=== PATIENT | female | born 1970 | race Caucasian/White ===

== ENCOUNTER → 2016-04-03 | Outpatient (CLI) | payer BC ==
[2013-07-12 15:14] VITALS: BP 108/64
[~2016-04-03] MED LIST: CHOL10002 PO; ESTR1PAT42 TD; EZET10TA3 PO; FENT1PAT21 TD; LUBI24CA5 PO; OXYC1TAB9 PO; SUMA4PEN2 SQ; TIZA4CAP3 PO; TOPI50TA38 PO; VALIUM10 MG PO
--- NOTE | 2016-04-04 10:14 | PN ---
DATE: 04/03/2016 DIAGNOSES: 1. Myofascial pain. 2. Cervical radiculopathy. 3. Lumbar radiculopathy. HISTORY OF PRESENT ILLNESS: The patient is a 46-year-old female who returns for followup status post medication management with both Duragesic patches and oxycodone. The patient is also taking Amitiza, which is working well for constipation. The patient reports no new motor or sensory deficits, still significant pain in the low back, bilateral shoulders. She is planning to have shoulder surgery with a total shoulder replacement on the right, coming up in the next month or two. The patient is meeting with her orthopedic surgeon next week. We will have more details then. The patient reports pain anywhere from 4 to 8 on a scale of 10. Medications were reducing the pain by about 75%, however, and she is pleased with this and has had no significant side effects besides the constipation, which is being well controlled by her report with Amitiza. The patient reports otherwise doing well. No new motor or sensory deficits. No new bowel or bladder incontinence. PHYSICAL EXAMINATION: VITAL SIGNS: The patient's blood pressure is 96/59, pulse 76, respirations 18, temperature 98.0 degrees Fahrenheit, height is 5 feet 1 inch, and weight 122 pounds. GENERAL: The patient is awake, alert, oriented, appropriate, very pleasant demeanor. HEENT: Head shows normocephalic and atraumatic. Extraocular movements are intact and symmetrical. Oral cavity, mucous membranes are moist and pink. Dentition is intact. NECK: Shows anterior throat supple without palpable lymphadenopathy noted. Swallow reflex is symmetrical. Neck shows full rotational motion of cervical spine with some minor tenderness with extension, but not with forward flexion. Posterior cervical musculature shows some moderate tenderness with palpation with the posterior, inferior, superior, and lateral trapezius muscle, the inferior cervical paraspinous musculature, but without trigger points, without radiation. CHEST: Shows normal on inspection. Breath sounds are clear to auscultation bilaterally. HEART: Shows S1 and S2 clear. ABDOMEN: Soft, nontender, and nondistended. No palpable organomegaly. No rebound or guarding demonstrated. BACK: The patient's back shows spine grossly midline. Lumbar paraspinous muscle shows some moderate tenderness with palpation, but only diffusely in the middle and lower distribution, but is firm, muscle girth is normal, but firm on palpation without radiation. No tenderness over the sacrum or the sacroiliac regions. The patient shows good rotation and motion of the lumbar spine, both laterally as well as extension and flexion with some minor pain with extension, but not with forward flexion. EXTREMITIES: Lower extremities showed deep tendon reflexes at 1+ in the patellar and tendo-calcaneus tendons. Motor exam is strong with dorsiflexion and extension, rated at approximately 4 on a scale of 5, but is symmetrical and equal with quadriceps and hamstring flexion of 4/5 and equal as well. Upper extremities show manager massage department strength at 4/5, biceps and triceps at 4/5 and equal, but symmetrical also. Peripheral pulses are 2+ in radial distribution as well as the posterior tibial and dorsalis pedis pulses. No peripheral edema is noted in any of the upper or lower extremities. PLAN: Options were discussed with the patient. We will refill patient's Duragesic patch as well as oxycodone, also Zanaflex and Amitiza, which medications discussed as well as side effects to be aware of discussed and the patient will follow up in approximately 90 days or sooner if necessary. The patient was instructed to call to notify when the surgery would be performed on her shoulder. Also, we may make plans for postoperative analgesia and pain control, postop with the surgery itself, has been done this with her in the past as she is under narcotic contract with our office. The patient continues to have normal ____ and normal urinalysis to date without ____. ANGEL EPPS MD DR: LENARD/kiet JOB#: [id number] / [id number]
== END | disposition home or self-care (01) ==
LOC: PNCL 13:05
PROVIDERS: ATTEND Anesthesiology
DX: M54.16 Radiculopathy, lumbar region (principal); M54.12 Radiculopathy, cervical region; M79.1 Myalgia
CPT/HCPCS: G0463

== ENCOUNTER → 2016-07-14 | Outpatient (CLI) | payer BC ==
[2013-07-12 15:14] VITALS: BP 108/64
[~2016-07-14] MED LIST changes: +EZET10TA18 PO; -EZET10TA3 PO; -LUBI24CA5 PO; +LUBI24CA7 PO
--- NOTE | 2016-07-15 03:49 | PAIN ---
DATE OF SERVICE: 07/14/2016 DIAGNOSES: 1. Myofascial pain. 2. Cervical radiculopathy. 3. Lumbar radiculopathy. 4. Bilateral shoulder joint pain. HISTORY OF PRESENT ILLNESS: The patient is a 46-year-old female who returns for followup status post medication management with both Duragesic patches and oxycodone, also taking Zanaflex for muscle relaxation and Amitiza for constipation. The patient reports she is doing very well with this regimen, has been having her pain very well controlled about 75% or so, overall without significant side effects. The patient is having shoulder surgery, planned for later this summer on her right shoulder ____ process of relocating her to [place]. They just sold their house here, has had some increase in stress, but she has her family helping and professional movers helping her back and they get things ready to go. She will be staying with her daughter here, she reports through the time for surgery at least and recovery from that. The patient reports otherwise doing fairly well. No new motor or sensory deficits, no new bowel or bladder incontinence, again constipation controlled well Amitiza. The patient rates her pain as a 4 on a scale of 10 currently, it can be as high as a 7 on a scale of 10 with standing and walking, using her upper extremities. The pain is mostly focused in the right shoulder and arm at this time as well as a the mid back, upper back and low back with some aching, sharp, dull and tight sensation, tingling can be severe, but is on and off in the back and more constant in the right shoulder, which is pending surgery once again. PHYSICAL EXAMINATION: VITAL SIGNS: Today, blood pressure 100/64, pulse 71, respirations 18, temperature 98.3 degrees Fahrenheit, height is 5 feet 1 inch, and weight 118 pounds. GENERAL: The patient is awake, alert, oriented, appropriate, very pleasant demeanor. HEENT: Shows normocephalic and atraumatic. Extraocular movements are intact and symmetrical. Oral cavity shows mucous membranes moist and pink. Dentition is intact. NECK: Shows anterior throat supple without palpable lymphadenopathy noted. Swallow reflex is symmetrical. Neck shows full rotational motion of cervical spine, both laterally as well as extension and flexion without significant pain reported. CHEST: Shows normal on inspection. Breath sounds are clear to auscultation bilaterally. HEART: Shows S1 and S2 clear. No murmurs are auscultated. ABDOMEN: Soft, nontender, and nondistended. No palpable organomegaly is noted. No rebound or guarding demonstrated. BACK: Shows spine grossly midline. Normal appearing thoracic kyphosis and lumbar lordotic curvature. There is some moderate tenderness to palpation in the superior medial and lateral trapezius on the right compared to the left, but more in the lateral aspect. The patient does have some difficulty with abduction of the right shoulder secondary to pain, as well as forward reach but better with posterior rotation. Left side shows good rotational motion. There is only very mild pain with lateral abduction greater than 90 degrees. Back shows spine grossly midline. Lumbar paraspinous muscle shows some moderate tenderness, but again diffusely in the lower lumbar distribution bilaterally, appears roughly symmetrical on inspection, with palpation shows some moderate tenderness without trigger points or radiation. No tenderness over the sacrum or sacroiliac regions. The patient shows good rotation and motion of the lumbar spine, both laterally as well as extension and flexion without pain reported. EXTREMITIES: Upper extremity deep tendon reflexes at 2+ in the biceps and 1+ just in the patellar and tendo calcaneus tendons. Motor exam is strong with mechanical engineering draftsperson strength at about 4/5 on the right hand and 5/5 on the left with dorsiflexion, extension, quadriceps and hamstring flexion are intact and symmetrical bilaterally, rated at 5/5 and equal. Options were discussed with the patient at this time. The patient's old chart was reviewed as her current medication regimen and updated. Current review of systems updated today as well. We will refill patient's Duragesic patches as well as oxycodone, Zanaflex and Amitiza with instructions, side effects to be aware of discussed with each of the medications. The patient will continue rehabilitative therapy with her shoulders, especially on the right side. Presurgical stretching as well. She is seeing an orthopedic surgeon later this week. We will follow up with his recommendations also. The patient will maintain hydration. We talked about dietary considerations regarding this as well. The patient had a good handle on this with fruit juices and ____ help as well as Amitiza. The patient will follow up in approximately 2 months as scheduled or sooner if necessary. ANGEL EPPS MD DR: Yamilet JOB#: [id number] / [id number]
== END | disposition home or self-care (01) ==
LOC: PNCL 14:37
PROVIDERS: ATTEND Anesthesiology
DX: M54.12 Radiculopathy, cervical region (principal); M54.16 Radiculopathy, lumbar region; M25.512 Pain in left shoulder; M25.511 Pain in right shoulder; M79.1 Myalgia
CPT/HCPCS: 99212

== ENCOUNTER → 2016-09-24 | Outpatient (CLI) | payer BC ==
[2013-07-12 15:14] VITALS: BP 108/64
--- NOTE | 2016-09-24 19:13 | PAIN ---
DATE OF SERVICE: 09/24/2016 DIAGNOSES: 1. Myofascial pain. 2. Cervical radiculopathy. 3. Lumbar radiculopathy. 4. Bilateral shoulder joint pain. HISTORY OF PRESENT ILLNESS: The patient is a 46-year-old female who returns for followup status post medication management with both oxycodone and Duragesic patches. The patient reports she had been doing very well with this on very stable regimen with the medication with no significant side effects. At times she is doing well with the Amitiza for constipation, which she was taking it upon every other day on average, but sometimes each day. The patient reports no new motor or sensory deficits, still pain in the low back, neck, shoulders, upper back, mid back, back and right hip, aching, dull tight cramping, burning, tingling with radiating pain that becomes more severe and constant, radiating from 4-9 on a scale of 10, currently 4 today. The patient reports it awakens her from sleep 2-3 times at night. She has to reposition, take pain medication, get out of the bed, then she is able to get back to sleep most of the nights after this. The patient reports no new motor or sensory deficits, no new bowel or bladder incontinence or other complaints. PHYSICAL EXAMINATION: VITAL SIGNS: Shows blood pressure 122/77, pulse 98, respirations 18, temperature is 98.3 degrees Fahrenheit, height is 5 feet 1 inch, weight is 123 pounds. GENERAL: The patient is awake, alert, oriented, appropriate, very pleasant demeanor. HEENT: Head shows normocephalic, atraumatic. Extraocular movements are intact and symmetrical. Oral cavity shows mucous membranes moist and pink. Dentition is intact. NECK: Shows anterior throat supple without palpable lymphadenopathy noted. Swallow reflex is symmetrical. Neck shows full rotational motion of cervical spine with some minor tenderness with extension, but not with forward flexion, right and left lateral rotation. CHEST: Shows normal on inspection. Breath sounds are clear to auscultation bilaterally. HEART: Shows S1 and S2 clear. No murmurs auscultated. ABDOMEN: Soft, nontender, nondistended. No palpable organomegaly, no rebound or guarding demonstrated. BACK: Shows spine grossly in midline. Normal appearing thoracic kyphosis and lumbar lordotic curvature as well as cervical lordotic curvature. Lumbar paraspinous muscle shows symmetrical. There is mildly tender diffusely normal lumbar distribution bilaterally, but only diffusely without radiation. Mid thoracic spine shows some moderate tenderness in the rhomboid musculature bilaterally, was very firm, very tight musculature without specific trigger points and no radiation. EXTREMITIES: Lower extremities showed deep tendon reflexes 1+ in the patellar and tendo calcaneus tendons. Motor exam is strong with 5/5 dorsiflexion, extension, quadriceps and hamstring flexion and are symmetrical. Upper extremities show significant tenderness with attempted abduction of the right shoulder as well as rotational motion posteriorly, but better anteriorly. This is true with passive and active motion, very firm and tender. Peripheral pulses are 2+ in radial distribution and 1+ posterior tibial distribution. No peripheral edema noted of the extremities. Options were discussed with the patient and the patient's old chart was reviewed. Current medication regimen updated. Current review of systems updated today as well and we will refill the patient's Duragesic patches as well as oxycodone also. The patient is scheduled to have surgery on her right rotator cuff next month on 10/30/2016 and we will have extra oxycodone available for breakthrough pain for postoperative condition after surgery. The patient was given instruction as well as side effects to be aware with medication. Also, refill the patient's Amitiza as she is doing quite well with this as well as Zanaflex for muscle relaxation. The patient was given instruction as well as side effects to be aware of each of her medications. The patient has had appropriate K-TRACS reporting today as well as appropriate urinalysis to date as well and again is on a very stable regimen of her current medications. We will maintain also for another 60-day supply of her controlled substances and follow up after her surgery next month. ANGEL EPPS MD DR: LENARD/kiet JOB#: [id number] / [id number]
== END | disposition home or self-care (01) ==
LOC: PNCL 13:32
PROVIDERS: ATTEND Anesthesiology
DX: M54.12 Radiculopathy, cervical region (principal); M54.16 Radiculopathy, lumbar region; M25.512 Pain in left shoulder; M25.511 Pain in right shoulder; M79.1 Myalgia
CPT/HCPCS: 99212

== ENCOUNTER → 2016-11-19 | Outpatient (CLI) | payer BC ==
[2013-07-12 15:14] VITALS: BP 108/64
--- NOTE | 2016-11-19 14:50 | PAIN ---
DATE OF SERVICE: 11/19/2016 DIAGNOSES: 1. Myofascial pain. 2. Cervical radiculopathy. 3. Lumbar radiculopathy. 4. Shoulder joint pain with primary osteoarthritis, bilateral shoulder joints. HISTORY OF PRESENT ILLNESS: The patient is a 46-year-old female who returns for followup status post medication management, last seen 09/24/2016. The patient returns reporting she is rather distraught as her had on 10/09/2016 unexpectedly from they believed myocardial infarction. The patient has been quite emotionally stressed and distraught, which has elevated her pain level to some extent. The patient reports she is coping fairly well. Now, she is seeing a psychologist fairly regularly since this happened and feels that she is coping fairly well getting through this. The patient is again understandably upset and emotional today regarding the loss of her spouse. The patient reports her pain has been increased in the base of her neck, especially the right shoulder compared to the left. She has postponed the surgery she had scheduled for last month secondary to the event that her passing. Is having significant pain in her right shoulder secondary. The patient reports the pain is an 8 on a scale of 10 at its worst, a 6-7 on average and a 4 at its least, is a 4 today. She reports it is aching, sharp, tight, dull, tingling, stabbing, burning with severe, constant and unbearable pain in the shoulders as well as the neck, upper back, mid back and low back and the right hip and left leg. The patient reports it awakens her from sleep at least every 3-4 hours, has to reposition and take pain medication. She is usually able to get back to sleep, but again sleeping has been very difficult for her since her 's at the end of September. PHYSICAL EXAMINATION: VITAL SIGNS: The patient's blood pressure is 117/71, pulse 68, respirations 18, temperature is 97.9 degrees Fahrenheit. Height is 5 feet 1 inch, weighs 119 pounds. GENERAL: The patient is awake, alert, oriented, appropriate, very pleasant demeanor. HEENT: Head shows normocephalic, atraumatic. Extraocular movements are intact, symmetrical. Oral cavity, mucous membranes are moist and pink. Dentition is intact. NECK: Shows anterior throat supple without palpable lymphadenopathy noted. Swallow reflex is symmetrical. CHEST: Shows normal on inspection. Breath sounds clear to auscultation bilaterally. HEART: Shows S1 and S2 clear. No murmurs auscultated. ABDOMEN: Soft, nontender, nondistended. No palpable organomegaly is noted. No rebound or guarding demonstrated. BACK: Shows spine grossly in the midline. Normal appearing cervical lordotic curvature, thoracic kyphotic curvature, mild flattening of lumbar lordotic curvature. Paraspinous musculature is tender throughout the middle and lower cervical paraspinous musculature bilaterally without radiation, also in the superior medial and lateral trapezius but without radiation as well. The patient shows good rotational motion of cervical spine, both laterally as well as extension and flexion without significant pain reported with some mild pain with extension only in the base of the neck. Low back shows good rotational motion, both laterally as well as extension and flexion with only minor pain reported with extension, but not flexion. Upper extremities showed deep tendon reflexes 2+ in the biceps and triceps tendons. Motor exam is strong with curriculum manager strength rated at 5/5. Shoulders are quite tender with movement, even a small amount of abduction about 20-30 degrees on the right side causes pain in the shoulder itself. EXTREMITIES: Lower extremities showed deep tendon reflexes 1+ in the patellar and tendo calcaneus tendons are equal. Motor exam is strong with 5/5 dorsiflexion and extension. Options were discussed with the patient. The patient's old chart was reviewed as her current medication regimen and updated. Current review of systems is updated today as well. We will refill the patient's Duragesic patches as well as oxycodone, Zanaflex and Amitiza as this is doing quite well for her. The patient was given instructions as well as side effects to be aware of each of the medications. Given 2-month prescription for each and will follow up in approximately 2 months period of time or sooner as necessary. ANGEL EPPS MD DR: LENARD/kiet JOB#: [id number] / [id number]
== END | disposition home or self-care (01) ==
LOC: PNCL 12:55
PROVIDERS: ATTEND Anesthesiology
DX: M54.12 Radiculopathy, cervical region (principal); M54.16 Radiculopathy, lumbar region; M19.011 Primary osteoarthritis, right shoulder; M19.012 Primary osteoarthritis, left shoulder; I21.9 Acute myocardial infarction, unspecified
CPT/HCPCS: 99212

== ENCOUNTER → 2017-01-14 | Outpatient (CLI) | payer BC ==
[2013-07-12 15:14] VITALS: BP 108/64
--- NOTE | 2017-01-15 01:20 | PAIN ---
DATE OF SERVICE: 01/14/2017 DIAGNOSES: 1. Myofascial pain. 2. Cervical radiculopathy. 3. Lumbar radiculopathy. 4. Bilateral shoulder joint pain with primary osteoarthrosis, bilateral shoulder joints. HISTORY OF PRESENT ILLNESS: The patient is a 46-year-old female who returns for a followup status post medication management with both Duragesic patches and oxycodone 10 mg. The patient is also taking Zanaflex for muscle relaxation and Amitiza for constipation. The patient reports she has been doing very well with her regimen without significant increases in pain, fairly steady regimen, still with some pain in the base of the neck, upper back, mid back, low back, bilateral shoulders, right greater than left. The patient is scheduled to have surgeries on her shoulder in February of next year. The patient reports she is still having significant pain, worse with sleeping, lifting items with the right arm or shoulder as well as standing, walking; much better with lying down or sitting, but worse with standing, bending with the back. The patient reports the pain in her shoulder and upper back is an 8 on a scale of 10 at its worst, a 5-6 on average and a 4 at its least, is a 5 today; low back is a 6 today. The patient reports it is aching, sharp, dull, tight, tingling, burning, constant and becoming more severe in the right shoulder itself. The low back, mid back and neck is about the same, but has been with a dull and aching quality with activity only. The patient reports it awakens her from sleep about every 3 nights, but generally because of her right shoulder, not because of her neck or back. The patient can usually reposition, take pain medication, get out of bed and is able to get back to sleep most times. The patient reports no new motor or sensory deficits, no new bowel or bladder incontinence, no other complaints or concerns. PHYSICAL EXAMINATION: VITAL SIGNS: Today, the patient's blood pressure is 104/61, pulse 66, respirations 18, temperature is 98.0 degrees Fahrenheit, height is 5 feet 1 inch, weight is 122 pounds. GENERAL: The patient is awake, alert, oriented, appropriate, very pleasant demeanor. HEENT: Shows normocephalic, atraumatic. Extraocular muscles are intact and symmetrical. Oral cavity shows mucous membranes moist and pink. Dentition is intact. NECK: Shows anterior throat is supple without palpable lymphadenopathy noted. Swallow reflex is symmetrical. CHEST: Shows normal with inspection. Breath sounds are clear to auscultation bilaterally. HEART: Shows S1, S2 clear. No murmurs auscultated. ABDOMEN: Soft, nontender, nondistended. No palpable organomegaly is noted. No rebound or guarding demonstrated. MUSCULOSKELETAL: Back shows spine grossly in the midline, normal-appearing cervical lordotic curvature, thoracic kyphotic curvature, lumbar lordotic curvature. No previous bruises, lesions, rashes or scars are noted. Cervical paraspinous muscle shows some moderate tenderness with palpation, but is symmetrical, but only in the inferior aspect, more on the right than the left into the superior medial trapezius as well, but without radiation, without trigger points. The patient has good rotational motion of the cervical spine, slightly guarded with far right lateral rotation, but full extension, full flexion and far left lateral rotation past 45 degrees performed without difficulty. The patient's low back shows symmetrical with inspection, some moderate tenderness with palpation throughout the upper, middle and lower distribution of the paraspinous muscles, but again symmetrical without radiation. No tenderness over the sacrum and sacroiliac regions. Lower extremities show deep tendon reflexes at 1+ in the patellar and tendo-calcaneus tendons and are equal. Upper extremities show 2+ biceps and triceps tendons. Ship Erector strength is 5/5 as is dorsiflexion, extension, quads and hamstrings without significant deficit. Peripheral pulses are 2+ in the radial distribution bilaterally and 1+ posterior tibia without edema in any of the extremities. PLAN: Options were discussed with the patient. The patient's old chart was reviewed as her current medication regimen and updated. Current review of systems updated today as well. We will refill the patient's Duragesic patch as well as oxycodone, Zanaflex and Amitiza. The patient was also given samples of Symproic to try for the constipation and see if this may work better to substitute this for the Amitiza. If significantly better, we will have a prescription called in for her. The patient was given instruction as well as side effects to be aware with each of her medications. Encouraged to increase stretching and strengthening exercises as tolerated and activity level as tolerated. The patient will follow up in approximately 2 months or sooner as necessary. ANGEL EPPS MD DR: LENARD/kiet JOB#: [id number] / [id number]
== END | disposition home or self-care (01) ==
LOC: PNCL 13:10
PROVIDERS: ATTEND Anesthesiology
DX: M54.12 Radiculopathy, cervical region (principal); M54.16 Radiculopathy, lumbar region; M19.012 Primary osteoarthritis, left shoulder; K59.00 Constipation, unspecified
CPT/HCPCS: 99212

== ENCOUNTER → 2017-04-07 | Outpatient (CLI) | payer BC | END | disposition home or self-care (01) | LOC: PNCL 09:04 | DX: M54.16 Radiculopathy, lumbar region (principal); M81.0 Age-related osteoporosis without current pathological fracture; K59.00 Constipation, unspecified; M25.511 Pain in right shoulder | CPT/HCPCS: 99212 ==

== ENCOUNTER → 2017-06-10 | Outpatient (CLI) | payer BC | END | disposition home or self-care (01) | LOC: PNCL 08:38 | DX: M54.16 Radiculopathy, lumbar region (principal); M54.12 Radiculopathy, cervical region; M19.011 Primary osteoarthritis, right shoulder; K59.00 Constipation, unspecified | CPT/HCPCS: 99212 ==

== ENCOUNTER → 2017-09-03 | Outpatient (CLI) | payer BC | END | disposition home or self-care (01) | LOC: PNCL 09:53 | DX: M54.16 Radiculopathy, lumbar region (principal); M54.12 Radiculopathy, cervical region; M19.012 Primary osteoarthritis, left shoulder; M19.011 Primary osteoarthritis, right shoulder | CPT/HCPCS: 99212 ==

== ENCOUNTER → 2017-11-26 | Outpatient (CLI) | payer BC ==
[2013-07-12 15:14] VITALS: BP 108/64
[~2017-11-26] MED LIST changes: +OXYC-411 PO; -OXYC1TAB9 PO
--- NOTE | 2017-11-27 02:19 | PAIN ---
DATE OF SERVICE: 11/26/2017 PROGRESS NOTE FOR PAIN CLINIC DIAGNOSES: 1. Myofascial pain. 2. Cervical radiculopathy. 3. Lumbar radiculopathy. 4. Shoulder joint pain with bilateral shoulder joint pain with osteoarthritis. HISTORY OF PRESENT ILLNESS: The patient is a 47-year-old female who returns for followup status post medication management with Duragesic patches and oxycodone and also the patient is taking Amitiza and Zanaflex. The patient reports she is doing very well with this, on a very stable regimen. Still has some significant pain in the base of the neck and shoulders causing headaches more on the right shoulder than the left, status post rotator cuff repair. The patient reports her pain is 8 on a scale of 10 at its worse, 5 on average, 4 at its least and is a 5 today. The patient reports tingling, burning, cramping, aching, sharp, dull, tight, radiating, becoming constant, sometimes severe and unbearable with activity and use of the right upper extremity and also pain in the mid back and low back radiating to the right posterior gluteus, posterior thigh and calf in a radicular fashion. The patient reports the pain medication, however, decreased the pain by about 75%-80% improvement and has for several months and she is doing very well. She is still having some difficulty with sleeping at night but sleeps about 6 hours at a time. The pain does awaken her mostly in the right shoulder. The patient reports she is scheduled to have an umbilical hernia repair in the near future as well as work on the shoulder, but this is being scheduled. The patient reports no side effects with the medication and has been managing fairly well with this for some time now maintaining hydration. No significant side effects. PHYSICAL EXAMINATION: VITAL SIGNS: The patient's blood pressure is 110/75, pulse 77, respirations are 18 and temperature 98.1 degrees Fahrenheit. Height is 5 feet 1 inch and weight is 123 pounds. GENERAL: The patient is awake, alert, oriented, appropriate and very pleasant demeanor. HEENT: Head is normocephalic and atraumatic. Extraocular movements are intact and symmetrical. Oral cavity: Mucous membranes are moist and pink. Dentition is intact. NECK: Shows anterior throat supple without palpable lymphadenopathy noted. Swallow reflex symmetrical. CHEST: Shows normal on inspection. Breath sounds are clear to auscultation bilaterally. HEART: Shows S1 and S2 clear. No murmurs auscultated. ABDOMEN: Soft, nontender and nondistended. No palpable organomegaly is noted. The patient does have a slight outpouching just in the hypogastric region beneath the umbilicus, which is moderately tender with palpation but no gross herniation palpated on exam today. No organomegaly is noted. No rebound or guarding. BACK: Shows spine grossly in the midline. Cervical paraspinous muscle shows symmetrical on inspection, on palpation shows some moderate tenderness, which is diffusely tender throughout the upper, middle and lower distribution of the paraspinous muscles, more on the right than the left into the superior medial trapezius, but without specific trigger points or radiation. The patient has good rotational motion of the cervical spine, both laterally as well as extension and flexion without significant difficulty. Lower back shows some moderate tenderness throughout the lumbar paraspinous musculature, upper, middle and lower distribution as well but only diffusely without radiation. EXTREMITIES: The patient's upper extremities show significant limitation of motion of the right shoulder but abduction at about 45 degrees, which is better than on previous exams without significant pain. Moderate tenderness with palpation to the anterior, posterior and lateral aspect of the deltoid as well as acromioclavicular region on the right side. The patient's lower extremities show deep tendon reflexes at 1+ in the patellar and tendo-calcaneus tendons. Motor exam is approximately 4 on a scale of 5 but equal and symmetrical with dorsiflexion, extension, quadriceps and hamstring flexion. Peripheral pulses are 2+ radial, 1+ posterior tibial. No peripheral edema is noted in any of the extremities. Options were discussed with the patient. The patient's old chart was reviewed as well as her current medication regimen updated. Current review of systems updated today as well. We will refill the patient's Duragesic patch as well as oxycodone, Zanaflex and Amitiza. The patient has had appropriate K-TRACS reporting as well as appropriate urinalysis to date. We will fill this for a 90-day supply. The patient was given instruction as well as side effects to be aware of each of the medications and we will follow up as scheduled or sooner if necessary. ANGEL EPPS MD DR: Yamilet JOB#: [id number] / [id number]
== END | disposition home or self-care (01) ==
LOC: PNCL 11:59
PROVIDERS: ATTEND Anesthesiology
DX: M79.18 Myalgia, other site (principal); M54.12 Radiculopathy, cervical region; M54.16 Radiculopathy, lumbar region; M19.012 Primary osteoarthritis, left shoulder; M19.011 Primary osteoarthritis, right shoulder
CPT/HCPCS: 99212

== ENCOUNTER → 2018-02-18 | Outpatient (CLI) | payer BC ==
[2013-07-12 15:14] VITALS: BP 108/64
[~2018-02-18] MED LIST changes: +FREM225S SQ; +KETO1SPR NS
--- NOTE | 2018-02-18 15:45 | PAIN ---
DATE OF SERVICE: 02/18/2018 DIAGNOSES: 1. Myofascial pain. 2. Cervical radiculopathy. 3. Lumbar radiculopathy. 4. Bilateral shoulder joint pain with primary osteoarthritis. HISTORY OF PRESENT ILLNESS: The patient is a 48-year-old female who returns for followup status post medication management with oxycodone and Duragesic patches. The patient is also taking Zanaflex and Amitiza for constipation, which she reports works very well. The patient reports she is on a very stable regimen, reports about 75%-80% improvement in her pain in the base of the neck, shoulders, upper back and mid back and low back with radiation to the right lower extremity. The patient reports medication is doing well. She is able to function without grogginess, drowsiness or other side effects, some mild constipation, which is controlled with Amitiza. The patient reports chief complaint of pain in her right shoulder. She is still awaiting a surgical reevaluation for this. The patient reports the pain is aching, dull, tight, sharp, shooting, also in the neck and back with tingling, burning, cramping, stabbing pain in the low back especially extremities. It is mostly constant in the back, severe and unbearable at times, worse with activity, better with sitting or lying down, but awakening her from sleep about every 4 hours. The patient reports the pain is 8-9 on a scale of 10 at its worst, 4-5 on average and a 4 at its least and is a 5 today. The patient reports no new motor or sensory deficit, again no side effects with the medications. PHYSICAL EXAMINATION: VITAL SIGNS: The patient's blood pressure 114/49, pulse 74, respirations are 18, temperature is 98.0 degrees Fahrenheit, weight is 126 pounds. GENERAL: The patient is awake, alert, oriented, appropriate, very pleasant demeanor. HEENT: Head is normocephalic, atraumatic. Extraocular movements intact and symmetrical. Oral cavity: Mucous membranes are moist and pink. Dentition is intact. NECK: Shows anterior throat supple without palpable lymphadenopathy noted. Swallow reflex is symmetrical. CHEST: Shows normal on inspection. Breath sounds clear to auscultation bilaterally. HEART: Shows S1, S2 clear. No murmurs auscultated. ABDOMEN: Soft, nontender, nondistended. No palpable organomegaly is noted. No rebound or guarding demonstrated. BACK: Shows spine grossly in the midline. Cervical lordotic curvature is maintained as is thoracic kyphotic curvature, some mild flattening of lumbar lordotic curvature. Palpation shows some moderate tenderness throughout the cervical paraspinous musculature, mostly in the inferior aspect, right slightly greater than left in the superior medial trapezius. The patient has good rotational motion of the cervical spine, both laterally as well as extension and flexion without significant difficulty. Lower back shows some moderate tenderness throughout the upper, middle, lower distribution of paraspinous muscles in the lumbar distribution without specific trigger points or radiation and only with moderate tenderness bilaterally, but without radiation. EXTREMITIES: The patient's extremities show upper extremity deep tendon reflexes 2+, lower extremities are 1+ patellar and tendo calcaneus tendons. Motor exam is strong with irish moss bleacher strength rated 5/5 as is bicep and tricep flexion. Lower extremities show 5/5 dorsiflexion, extension, quadriceps and hamstring flexion. The patient's right shoulder shows significant tenderness with attempted abduction, which she is only to abduct approximately 45 degrees from her side without significant pain in the superior aspect of the shoulder, although no masses are palpated. She is moderately tender throughout the anterior, posterior and lateral aspect of the deltoid as well as the acromioclavicular joint on the right side greater than left. Options were discussed with the patient. The patient's old chart was reviewed as her current medication regimen and updated. Current review of systems is updated today as well. We will refill the patient's medications, Duragesic patch as well as Amitiza, oxycodone and Zanaflex with instructions. Side effects to be aware of discussed with each of the medications for 90-day supply. The patient has had appropriate K-TRACS reporting as well as appropriate urinalysis to date. We have renewed urinalysis today as well, renewed the narcotic contract. The patient was given a copy of this as well. The patient will follow up in approximately 3 months or sooner if necessary. ANGEL EPPS MD DR: LENARD/kiet JOB#: [id number] / [id number]
== END | disposition home or self-care (01) ==
LOC: PNCL 11:42
PROVIDERS: ATTEND Anesthesiology
DX: M54.12 Radiculopathy, cervical region (principal); M54.16 Radiculopathy, lumbar region; M19.012 Primary osteoarthritis, left shoulder; M19.011 Primary osteoarthritis, right shoulder; Z79.899 Other long term (current) drug therapy
CPT/HCPCS: G0463

== ENCOUNTER → 2018-05-13 | Outpatient (CLI) | payer BC ==
[2013-07-12 15:14] VITALS: BP 108/64
[~2018-05-13] MED LIST changes: -FREM225S SQ
--- NOTE | 2018-05-13 20:20 | PAIN ---
DATE OF SERVICE: 05/13/2018 DIAGNOSES: 1. Myofascial pain. 2. Cervical radiculopathy. 3. Lumbar radiculopathy. 4. Shoulder joint pain with osteoarthritis bilaterally. HISTORY OF PRESENT ILLNESS: The patient is a 48-year-old female who returns for followup status post medication management with both Duragesic patches and oxycodone. The patient has been on this regimen for extended period of time, is very stable with the medication. Does very well with this. Has had no significant side effects. The patient reports no new motor or sensory deficits, still significant pain in bilateral shoulders, right greater than left at this time; also mid back, upper back and low back with pain in the right hip. The patient reports it is aching, sharp, dull, tight, tingling, burning, cramping, sometimes constant, sometimes severe, occasionally unbearable, usually with increased activity especially with right upper extremity and shoulder. The patient reports pain is 8 on a scale of 10 at its worst, 4-5 at its average and a 4 at its least and is a 5 today. The patient reports no new motor or sensory deficits, no new changes. Again, no side effects with medication. Reports about a 70% improvement overall without significant side effects. The patient reports it still awakens her from sleep at times, she can reposition, take pain medication and get back to sleep. PHYSICAL EXAMINATION: VITAL SIGNS: Today, the patient's blood pressure 134/64, pulse 75, respirations 18, temperature 97.8 degrees Fahrenheit. Height is 5 feet 1 inch, weighs 125 pounds. GENERAL: The patient is awake, alert, oriented, appropriate, very pleasant demeanor. HEENT: Head shows normocephalic, atraumatic. Extraocular movements are intact and symmetrical. Oral cavity, mucous membranes are moist and pink. Dentition is intact. NECK: Shows anterior throat supple without palpable lymphadenopathy noted. Swallow reflex is symmetrical. CHEST: Shows normal on inspection. Breath sounds clear to auscultation bilaterally. HEART: Shows S1, S2 clear. No murmurs auscultated. ABDOMEN: Soft, nontender, nondistended. No palpable organomegaly is noted. No rebound or guarding demonstrated. BACK: Shows spine grossly in the midline, normal-appearing cervical lordotic curvature, thoracic kyphotic curvature, mild flattening of lumbar lordotic curvature. Cervical paraspinous musculature shows symmetrical on inspection, with palpation some mild tenderness to moderate tenderness in the right side in the inferior aspect of the cervical paraspinous musculature in the superior, medial and lateral trapezius on the right, but not the left. The patient has good rotational motion of cervical spine, both laterally as well as extension and flexion without significant pain reported. EXTREMITIES: The patient's upper extremities show deep tendon reflexes at 2+ in the biceps and triceps tendons. Motor exam is strong with 5/5 environment friendly landscape designer strength, bicep and tricep flexion. The patient's shoulders have some limited abduction secondary to pain bilaterally, but somewhat worse on the right than the left and pain with shoulder shrug and resistance, but without loss of strength on resistance. Lower extremities show deep tendon reflexes 1+/4 in the patellar and tendo-calcaneus tendons. Motor exam is strong with 5/5 dorsiflexion, extension, quadriceps and hamstring flexion is symmetrical. Peripheral pulses are 2+ radial, 1+ posterior tibia. No peripheral edema is noted in bilateral upper and lower extremities. Options were discussed with the patient. The patient's old chart was reviewed as her current medication regimen and updated. Current review of systems is updated today as well. We will refill the patient's medication for a 3-month period and she has had appropriate K-TRACS reporting as well as appropriate urinalysis to date. Again, Duragesic patches 100 mcg and oxycodone 10 mg. The patient is also taking Amitiza for constipation and Zanaflex for muscle relaxation. Again, doing very well with each of these, has been on very stable regimen. The patient was given instruction as well as side effects to be aware of with all of the medications and will follow up in approximately 90 days or sooner as necessary. ANGEL EPPS MD DR: LENARD/kiet JOB#: [id number] / [id number]
== END | disposition home or self-care (01) ==
LOC: PNCL 11:45
PROVIDERS: ATTEND Anesthesiology
DX: M19.011 Primary osteoarthritis, right shoulder (principal); M19.012 Primary osteoarthritis, left shoulder; M54.12 Radiculopathy, cervical region; M54.16 Radiculopathy, lumbar region; M79.18 Myalgia, other site; M25.551 Pain in right hip
CPT/HCPCS: G0463

== ENCOUNTER → 2018-08-18 | Outpatient (CLI) | payer BC ==
[2013-07-12 15:14] VITALS: BP 108/64
[~2018-08-18] MED LIST changes: +FREM225S SQ
--- NOTE | 2018-08-19 00:07 | PAIN ---
DATE OF SERVICE: 08/18/2018 PROGRESS NOTE FOR PAIN CLINIC DIAGNOSES: 1. Myofascial pain. 2. Cervical radiculopathy. 3. Lumbar radiculopathy. 4. Shoulder joint pain, right greater than left, with primary osteoarthritis. HISTORY OF PRESENT ILLNESS: The patient is a 48-year-old female who returns for followup status post medication management with both oxycodone and Duragesic patches. The patient is also taking Zanaflex and Amitiza and this is doing very well for any constipation. She does not use it every day, but when she does need it, it does work very well by her report. The patient reports no new motor or sensory deficits, no new bowel or bladder incontinence. The medication has decreased the pain by about 70% improvement, without significant side effects. The patient still complains of pain in the base of the neck, right shoulder especially, with some electrical zinging pains recently and in the low back and right leg. The patient reports the pain in the back, neck and shoulders is aching, sharp, tight, dull, tingling, burning and alternating stabbing, sometimes constant and sometimes severe with weightbearing, repetitive motions, lifting items with her right arm. The patient reports this is a 9 on a scale of 10 at its worst in the past week, 6 on average, 4-5 at its least and is a 5 today. The patient reports she is doing better with some migraines, though she is taking the once a month Depo shot for this, which seems to be helping. The patient reports the pain awakens her from sleep at night. She has had a lot of stress lately. She has taken custody of her granddaughter, which is now 3 years old and this does cause a lot of stress and anxiety in her life as well, which has exacerbated the pain. PHYSICAL EXAMINATION: VITAL SIGNS: The patient's blood pressure is 112/64, pulse 83, respirations are 18 and temperature 98.4 degrees Fahrenheit. Height is 5 feet 1 inches and weight is 120 pounds. GENERAL: The patient is awake, alert, oriented, appropriate, very pleasant demeanor. HEENT EXAMINATION: Shows normocephalic, atraumatic. Extraocular movements are intact and symmetrical. Oral cavity, mucous membranes are moist and pink. Dentition is intact. NECK: Shows anterior throat supple, without palpable lymphadenopathy noted. Swallow reflex is symmetrical. CHEST: Shows normal with inspection. Breath sounds are clear bilaterally. HEART: Shows S1, S2 clear. No murmurs auscultated. ABDOMEN: Soft, nontender and nondistended. No palpable organomegaly is noted. No rebound or guarding demonstrated. BACK: Shows spine grossly in the midline, with normal-appearing thoracic kyphosis, lumbar lordotic curvature and cervical lordotic curvature. Paraspinous muscle shows symmetrical on inspection. On palpation, it shows some moderate tenderness diffusely in the inferior aspects of the cervical paraspinous muscles bilaterally, but only diffusely, without radiation; somewhat more tender on the right trapezius musculature, extending laterally towards the shoulder. EXTREMITIES: The patient's upper extremities show deep tendon reflexes 2+ in the biceps and triceps tendons. Motor exam is strong with approximately 4 on a scale of 5 on the right, with second helper strength, bicep and tricep flexion and 5/5 on the left. The patient's right shoulder shows significant tenderness with abduction even past about 20 degrees. Also with range of motion, both actively and passively, it is moderately tender to severely tender in the superior aspect of the shoulder, anterior deltoid and lateral deltoid. Peripheral pulses are 2+ radial distribution. No peripheral edema is noted. PLAN: Options were discussed with the patient. The patient's old chart was reviewed as was her current medication list updated and review of systems updated today as well. We will refill the patient's medication of Duragesic patches 100 mcg as well as oxycodone 10 mg, Amitiza as well as Zanaflex for a 90-day period. The patient has had appropriate K-TRACS reporting as well as appropriate urinalysis to date and will follow up with the clinic in approximately 90 days or sooner as necessary. The patient was given instructions as well as side effects to be aware of each of the medications and we will follow up as scheduled. ANGEL EPPS MD DR: LENARD/kiet JOB#: [id number] / [id number]
== END | disposition home or self-care (01) ==
LOC: PNCL 13:11
PROVIDERS: ATTEND Anesthesiology
DX: M19.012 Primary osteoarthritis, left shoulder (principal); M19.011 Primary osteoarthritis, right shoulder; M54.12 Radiculopathy, cervical region; M54.16 Radiculopathy, lumbar region; M79.18 Myalgia, other site; Z79.891 Long term (current) use of opiate analgesic; G43.909 Migraine, unspecified, not intractable, without status migrainosus
CPT/HCPCS: G0463

== ENCOUNTER → 2018-11-02 | Outpatient (CLI) | payer BC ==
[2013-07-12 15:14] VITALS: BP 108/64
[~2018-11-02] MED LIST changes: -EZET10TA18 PO; +EZET10TA20 PO
--- NOTE | 2018-11-02 22:24 | PAIN ---
DATE OF SERVICE: 11/02/2018 PROGRESS NOTE FOR PAIN CLINIC DIAGNOSES: 1. Myofascial pain. 2. Cervical radiculopathy. 3. Lumbar radiculopathy. 4. Shoulder joint pain with primary osteoarthritis, right greater than left. HISTORY OF PRESENT ILLNESS: The patient is a 48-year-old female, who returns for followup status post medication management with both Duragesic patches and oxycodone, also the patient is taking Amitiza for constipation and Zanaflex for muscle relaxation. The patient reports she is doing very well, has been on a very stable regimen. She has been on these medications for an extended period of time with very good results. Still some pain in the base of the neck and shoulders as well as the mid back and low back radiating to the right lower extremity as well as the right upper extremity from the neck. The patient reports she has relocated to a new home in [place], [place], and she has had increased activity with recent moving, but is having a lot of help with some friends of her sister, so she is not doing any of the heavy lifting. The patient reports her pain is an 8 on a scale of 10 at its worst over the past week, 4-5 on an average and a 3 at its least and is a 4 today. The patient reports no new motor or sensory deficits. Still significant pain in bilateral shoulders, again the right worse than the left, but well controlled with medications without significant side effects. The patient reports overall about 75% improvement with the medications. Again, constipation well controlled with Amitiza, but does not take it every day. PHYSICAL EXAMINATION: VITAL SIGNS: The patient's blood pressure 120/67, pulse 81, respirations 18, temperature is 98.3 degrees Fahrenheit, height is 5 feet 1 inch, weight is 120 pounds. GENERAL: The patient is awake, alert, oriented, appropriate, very pleasant demeanor. HEENT: Shows normocephalic, atraumatic. Extraocular movements are intact and symmetrical. Oral cavity: Mucous membranes moist and pink; dentition is intact. NECK: Shows anterior throat supple without palpable lymphadenopathy noted. Swallow reflex symmetrical. CHEST: Shows normal on inspection. Breath sounds clear to auscultation bilaterally. HEART: Shows S1, S2 clear. No murmurs auscultated. ABDOMEN: Soft, nontender and nondistended. No palpable organomegaly is noted. No rebound or guarding demonstrated. MUSCULOSKELETAL: Back shows spine grossly in the midline. Normal-appearing thoracic kyphosis and some minor flattening of lumbar lordotic curvature. Cervical paraspinous muscle shows symmetrical on inspection, with palpation shows some moderate tenderness diffusely, but only diffusely in the inferior aspect of the cervical paraspinous muscles. The patient's shoulder shows significant tenderness with palpation over the anterior deltoid as well as the lateral deltoid and posterior deltoid, more on the right than the left, with increased pain with abduction of the shoulders, especially on the right side past about 45 degrees, but intact. Upper extremity deep tendon reflexes are 2+, bicep and tricep tendons. Motor exam is approximately 4 on a scale of 5 with crown pouncer strength, bicep and tricep flexion. The patient's low back shows midline spine with some mild tenderness diffusely throughout the upper, middle and lower distribution of paraspinous muscles. The patient has good rotational motion of the lumbar spine laterally as well as extension and flexion without difficulty. Lower extremities show deep tendon reflexes 1+ in the patellar and tendo-calcaneus tendons. Motor exam is strong with 5/5 dorsiflexion and extension. Peripheral pulses are 2+ radial and 1+ posterior tibial. No peripheral edema is noted in any of the extremities. Options were discussed with the patient. The patient's old chart was reviewed as her current medication regimen updated. Current review of systems updated today as well. We will refill the patient's medications, both Duragesic patch as well as oxycodone, Zanaflex and Amitiza, all with instructions, side effects to be aware of. The patient has had appropriate K-TRACS reporting as well as appropriate urinalysis to date. We will refill these for a 90-day prescription. The patient will follow up in approximately 90 days or sooner as necessary. ANGEL EPPS MD DR: LENARD/kiet JOB#: [id number] / [id number]
== END | disposition home or self-care (01) ==
LOC: PNCL 13:59
PROVIDERS: ATTEND Anesthesiology
DX: M54.12 Radiculopathy, cervical region (principal); M54.16 Radiculopathy, lumbar region; M19.011 Primary osteoarthritis, right shoulder; M19.012 Primary osteoarthritis, left shoulder; M54.2 Cervicalgia; M54.5 Low back pain; M25.512 Pain in left shoulder; M25.511 Pain in right shoulder; M79.18 Myalgia, other site
CPT/HCPCS: G0463

== ENCOUNTER → 2018-12-28 | Outpatient (CLI) | payer BC ==
[2013-07-12 15:14] VITALS: BP 108/64
--- NOTE | 2018-12-29 03:23 | PAIN ---
DATE OF SERVICE: 12/28/2018 PROGRESS NOTE FOR PAIN CLINIC DIAGNOSES: 1. Myofascial pain. 2. Bilateral shoulder joint pain with osteoarthritis, primary shoulders, right greater than left. 3. Cervical radiculopathy. 4. Lumbar radiculopathy. HISTORY OF PRESENT ILLNESS: The patient is a 48-year-old female who returns for followup status post medication management with both Duragesic patches and oxycodone. The patient is also taking Amitiza for constipation, which she reports doing quite well and tizanidine for muscle relaxation. The patient reports no side effects with medications. She is on very stable regimen thus far with the medications and returns today reporting the same, still with significant reduction in pain by about 80% overall. The patient reports again no significant side effects. Amitiza is controlling the constipation very well. She is also using cranberry juice and Dulcolax laxatives and fiber which decreases the constipation as well. The patient reports pain is still in the base of the neck, shoulders, right shoulder greater than left, pending upcoming surgery on the right shoulder. The patient reports pain in the mid back, upper back, low back, also in the low back into the right lower extremity, posterior gluteus, posterior thigh, also pain in the right foot. The patient reports some neuropathic type pain in the foot as well as in the shoulders bilaterally and in the upper extremities. The patient reports the pain is an 8 on a scale of 10 at its worst over the past week, 6-7 on average, 4 at its least and is a 6 today. The patient reports it is burning, cramping, stabbing, aching, sharp, shooting at times in the low back and lower extremity, also dull and aching in the right shoulder. The patient reports no new motor or sensory deficits. The patient reports it awakens her from sleep about every 3-4 hours generally with the right shoulder and again orthopedic evaluation pending. PHYSICAL EXAMINATION: VITAL SIGNS: The patient's blood pressure 114/68, pulse 83, respirations 16, temperature 98.1 degrees Fahrenheit, weight is 121 pounds. GENERAL: The patient is awake, alert, oriented, appropriate, very pleasant demeanor. HEENT: Shows normocephalic, atraumatic. Extraocular movements are intact and symmetrical. Oral cavity shows mucous membranes moist and pink. Dentition is intact. NECK: Shows anterior throat supple without palpable lymphadenopathy noted. Swallow reflex symmetrical. CHEST: Shows normal on inspection. Breath sounds clear to auscultation bilaterally. HEART: Shows S1, S2 clear. No murmurs auscultated. ABDOMEN: Soft, nontender, nondistended. No palpable organomegaly is noted. No rebound or guarding demonstrated. BACK: Shows spine grossly in the midline. Normal appearing thoracic kyphosis and lumbar lordotic curvature slightly flattened. Paraspinous musculature shows symmetrical, but with moderate tenderness throughout the cervical paraspinous muscles, more on the right than the left in the trapezius. Thoracic paraspinous muscle shows some moderate tenderness in the lower thoracic distribution. Lumbar musculature shows diffuse tenderness throughout the upper, middle and lower distribution of paraspinous muscles bilaterally, but only diffusely without radiation or trigger points. The patient has good rotational motion of lumbar spine, both laterally as well as extension and flexion without significant increase in pain. Upper extremities show deep tendon reflexes 2+ in the biceps, triceps tendons. Lower extremities are 1+ in the patella and tendo-calcaneus tendons. Motor exam is strong with pruner strength rated at 5/5 as is biceps and triceps flexion 4/5 on the right, 5/5 on the left. Lower extremities show motor exam 5/5 with dorsiflexion and extension bilaterally. The patient's shoulder shows significant decrease in range of motion of the right shoulder with abduction only approximately 45 degrees away from neutral position with significant pain reported. This is true with shoulder shrug and resistance with loss of strength on resistance on the right side with shoulder shrug. Left side moderately tender, but without loss of strength on resistance. Options were discussed with the patient. The patient's old chart was reviewed as her current medication regimen updated. Current review of systems updated today as well. We will refill the patient's medications, Duragesic patch as well as oxycodone, Amitiza and tizanidine. The patient has had appropriate K-TRACS reporting as well as appropriate urinalysis to date. We will make this a 90-day refill, 3-month duration appointment for followup. The patient was given instruction as well as side effects to be aware of with all the medications. Urinalysis will be taken today as well as a routine screening. Also the patient's narcotic contract renewed today. She was given a copy of this as well. The patient will follow up in approximately 90 days or sooner if necessary. ANGEL EPPS MD DR: LENARD/kiet JOB#: [id number] / [id number]
== END | disposition home or self-care (01) ==
LOC: PNCL 13:18
PROVIDERS: ATTEND Anesthesiology
DX: M79.18 Myalgia, other site (principal); M19.012 Primary osteoarthritis, left shoulder; M19.011 Primary osteoarthritis, right shoulder; M54.12 Radiculopathy, cervical region; M54.16 Radiculopathy, lumbar region
CPT/HCPCS: G0463

== ENCOUNTER → 2019-03-01 | Outpatient (CLI) | payer BC ==
[2013-07-12 15:14] VITALS: BP 108/64
--- NOTE | 2019-03-02 05:16 | PAIN ---
DATE OF SERVICE: 03/01/2019 PROGRESS NOTE FOR PAIN CLINIC DIAGNOSES: 1. Myofascial pain. 2. Cervical radiculopathy. 3. Lumbar radiculopathy. 4. Bilateral shoulder joint pain with primary osteoarthritis. HISTORY OF PRESENT ILLNESS: The patient is a 49-year-old female who returns for followup status post medication management with both Duragesic patch and oxycodone. The patient is also taking Amitiza for constipation and Zanaflex for muscle relaxation. The patient reports she is doing very well with each of these with no significant side effects except for the constipation, which again is taken care of very well by her report with Amitiza. The patient reports no new motor or sensory deficits, but still significant pain in the base of the neck and shoulders, especially the right shoulder. She is following up with her orthopedic surgeon next month regarding potential redo shoulder surgery on the right side. Left side is doing fairly well, but still some significant pain. Also, pain in the base of the neck, upper back, mid back, low back and into the right lower extremity, into the posterior gluteus radiating to posterior thigh and calf. The patient reports it is an 8 on a scale of 10 at its worst over the past week, 5 on average, 4 at its least and is a 4 today. The patient reports it is aching, sharp, dull, tight, cramping, stabbing, burning, tingling with radiating pain that can be severe, worse with walking, standing, changing positions. The patient reports she does not sleep well at night, so she is generally tired during the days, sometimes the pain keeps her awake from sleep so much that she is not able to sleep. The patient reports with colder weather, the pain is worse as well; however, her migraine headaches are doing much better. She has taken new medication by her report called Ajovy injection. The patient reports no other significant new findings and again no side effects other than constipation with her medication regimen at this time. PHYSICAL EXAMINATION: VITAL SIGNS: The patient's blood pressure 116/71, pulse 85, respirations 16, temperature 98.0 degrees Fahrenheit, height is 5 feet 1 inch, weight is 122 pounds. GENERAL: The patient is awake, alert, oriented, appropriate, very pleasant demeanor. HEENT: Shows normocephalic, atraumatic. Extraocular movements are intact and symmetrical. Oral cavity: Mucous membranes moist and pink. Dentition is intact. NECK: Shows anterior throat supple without palpable lymphadenopathy noted. Swallow reflex symmetrical. CHEST: Shows normal on inspection. Breath sounds are clear bilaterally. HEART: Shows S1, S2 clear. No murmurs auscultated. ABDOMEN: Soft, nontender, nondistended. No palpable organomegaly is noted. No rebound or guarding demonstrated. BACK: Shows spine grossly in the midline. Normal appearing thoracic kyphosis and lumbar lordotic curvature. Cervical paraspinous muscle shows symmetrical on inspection, with palpation shows some moderate tenderness in the inferior aspect of the cervical paraspinous muscles diffusely without radiation. The patient has good rotational motion of cervical spine, both laterally as well as extension and flexion without difficulty. Upper back shows some mild tenderness throughout the trapezius musculature bilaterally as well as the rhomboid distribution. The patient's right shoulder shows significant tenderness with abduction and any range approximately 45 degrees or further away from midline with significant pain with reaching forward as well as reaching backwards, unable to do any weightbearing at all. Second Class Welder strength, however, is strong with 5/5. Bicep and tricep flexion approximately 3-4 on the right, 5/5 on the left. Peripheral pulses are 2+ radial distribution in the upper extremities. No peripheral edema is noted bilaterally. Options were discussed with the patient. The patient's old chart was reviewed as her current medication regimen updated. Current review of systems updated today as well. We will refill the patient's medications oxycodone as well as Duragesic patches, Amitiza as well as Zanaflex. The patient was given instruction as well as side effects to be aware of each of the medications and will follow up in approximately 90 days. She was given 90 day prescription refill as the patient has had appropriate K-TRACS reporting as well as appropriate urinalysis to date. The patient will follow up in 90 days or sooner as necessary. ANGEL EPPS MD DR: LENARD/kiet JOB#: [id number] / [id number]
== END | disposition home or self-care (01) ==
LOC: PNCL 14:39
PROVIDERS: ATTEND Anesthesiology
DX: M54.12 Radiculopathy, cervical region (principal); M54.16 Radiculopathy, lumbar region; M25.512 Pain in left shoulder; M25.511 Pain in right shoulder; M19.012 Primary osteoarthritis, left shoulder; M19.011 Primary osteoarthritis, right shoulder; M79.18 Myalgia, other site
CPT/HCPCS: G0463

== ENCOUNTER → 2019-06-01 | Outpatient (CLI) | payer BC ==
[2013-07-12 15:14] VITALS: BP 108/64
--- NOTE | 2019-06-01 12:09 | PAIN ---
DATE OF SERVICE: 06/01/2019 PROGRESS NOTE FOR PAIN CLINIC DIAGNOSES: 1. Myofascial pain. 2. Cervical radiculopathy. 3. Lumbar radiculopathy. 4. Shoulder joint pain bilaterally with osteoarthritis. HISTORY OF PRESENT ILLNESS: The patient is a 49-year-old female who returns for followup status post medication management with both oxycodone and Duragesic patches, also using Amitiza for constipation, which is her only side effect and is working well and Zanaflex for muscle relaxation. The patient reports no other side effects with the medication, has been on very stable regimen with the medication patch as well as the oxycodone. The patient reports still significant pain in the base of neck and shoulders, more on the right than the left, currently with pain radiating to the right upper extremity as well as the mid back, upper back and some in the low back. The patient reports her pain is 8 on a scale of 10 at its worst over the past week, 4-5 on average with her medication and 3 at its least and is a 4 today. The patient reports it is aching, sharp, dull, tight, shooting, tingling, burning, cramping, stabbing at times, constant, can be severe, unbearable with increased activity. 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 The patient reports she is still having some significant pain, however, at base of neck and shoulders, but she is able to take breaks from her work routine at home when she is needing and is pleased with this arrangement as well. The patient reports she still awaken up from sleep about every 4-5 hours, generally with right and left shoulder pain, but no new motor or sensory deficits. Again, no other side effects from the medication except for constipation, which is well controlled by her report with Amitiza. PHYSICAL EXAMINATION: VITAL SIGNS: The patient's blood pressure 104/51, pulse 75, respirations 18, temperature 98.2 degrees Fahrenheit, height is 5 feet 1 inch and weight is 117 pounds. GENERAL: The patient is awake, alert, oriented, appropriate, very pleasant demeanor. HEENT: Exam shows normocephalic, atraumatic. Extraocular movements are intact and symmetrical. Oral cavity shows mucous membranes moist and pink. Dentition is intact. NECK: Shows anterior throat supple without palpable lymphadenopathy noted. Swallow reflex symmetrical. CHEST: Shows normal on inspection. Breath sounds are clear to auscultation bilaterally. HEART: Shows S1, S2 clear. No murmurs auscultated. ABDOMEN: Soft, nontender, nondistended. BACK: Shows spine grossly in the midline. Cervical paraspinous muscle shows symmetrical on inspection with normal cervical lordotic curvature with palpation shows some moderate tenderness diffusely in the middle and lower distribution of the cervical paraspinous musculature, especially on the right superior medial and lateral trapezius without specific trigger points, but with moderate tenderness diffusely throughout. This is true on the left side, but with less intensity and tenderness on the left. The patient does show good rotational motion of both shoulders, both with abduction, anterior and posterior range of motion without loss of strength on resistance. The patient's thoracic spine shows normal thoracic curvature as does the lumbar lordotic curvature. Paraspinous musculature is diffusely tender in the thoracic paraspinous musculature bilaterally, but without trigger points or radiation. Lumbar paraspinous musculature is tender only in the low lumbar distribution bilaterally, again symmetrical without evidence of atrophy, hypertrophy, no trigger points. The patient has good rotational motion of the lumbar spine as well, both laterally greater than 10 degrees right and left as well as extension and forward flexion without significant pain reported. EXTREMITIES: The patient's upper extremities show deep tendon reflexes 2+ in the biceps, triceps tendons. 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 Lower extremities show similar, deep tendon reflexes 1+ in the patellar bilaterally and tendo-calcaneus tendons. Motor exam is 5/5 with dorsiflexion, extension, quadriceps and hamstring flexion. Peripheral pulses are 2+ radial, 1+ posterior tibia. No peripheral edema bilaterally in the upper or lower extremities. Options were discussed with the patient. The patient's old chart was reviewed as her current medication regimen updated. Current review of systems updated today as well. We will proceed with refill of the patient's Duragesic patch as well as oxycodone, Zanaflex and Amitiza. The patient was given instruction as well as side effects to be aware of these medications. The patient has had appropriate K-TRACS reporting as well as appropriate urinalysis to date. We gave her a 2-month prescription refill. The patient will return in approximately 2 months or sooner as necessary. ANGEL EPPS MD DR: LENARD/kiet JOB#: [id number] / [id number]
== END | disposition home or self-care (01) ==
LOC: PNCL 10:35
PROVIDERS: ATTEND Anesthesiology
DX: M54.16 Radiculopathy, lumbar region (principal); M54.12 Radiculopathy, cervical region; M19.012 Primary osteoarthritis, left shoulder; M19.011 Primary osteoarthritis, right shoulder
CPT/HCPCS: G0463

== ENCOUNTER → 2019-07-27 | Outpatient (CLI) | payer BC ==
[2013-07-12 15:14] VITALS: BP 108/64
--- NOTE | 2019-07-27 21:31 | PAIN ---
DATE OF SERVICE: 07/27/2019 PROGRESS NOTE FOR PAIN CLINIC DIAGNOSES: 1. Myofascial pain. 2. Cervical radiculopathy. 3. Lumbar radiculopathy. 4. Shoulder joint pain bilaterally, right greater than left with osteoarthritis. HISTORY OF PRESENT ILLNESS: The patient is a 49-year-old female who returns for followup status post medication management with Duragesic patch and oxycodone. The patient has been on very stable regimen of this for some extended period of time with good results and very minimal side effects. She does have some constipation, which is relieved with Amitiza. The patient is also taking Zanaflex for some muscle spasms in the mid back, upper back, which she is still taking. The patient reports she has been doing fairly well, on a very stable regimen with medications with about a 60%-70% improvement. 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 She has been more fatigued. She is not sleeping as well. The patient reports pain in the base of neck and shoulders, more on the right upper extremity and shoulder than the left, but also in the mid back, upper back, low back, also on the right posterior gluteus and posterior right thigh and calf. The patient reports her pain is a 9 on a scale of 10 overall at its worse the past week, 4-5 on an average and 4 at its least and is a 5 today. The patient reports it is aching and sharp at times, tight in the neck and upper back, mid back, low back with tingling and burning in the shoulders and the right arm, and cramping in upper back as well. It is radiating pain in the right arm as well as the right leg. It can be severe and unbearable with activity, but she has been doing work activities as well as household activities with fairly good ease and comfort, except for the last week when she has been working nights, and has had much more fatigued. The patient also complains of loss of appetite and has lost about 2 pounds since her last visit and about 12 pounds overall in the last year by record review. The patient reports no new motor or sensory deficits, no new changes. Again, no other side effects with the medications. PHYSICAL EXAMINATION: VITAL SIGNS: The patient's blood pressure 112/64, pulse 76, respirations 18, temperature 98.2 degrees Fahrenheit, height is 5 feet 1 inch, weight is 115 pounds. GENERAL: The patient is awake, alert, oriented, appropriate, very pleasant demeanor. HEENT: Shows normocephalic, atraumatic. Extraocular movements are intact and symmetrical. Oral cavity, mucous membranes are moist and pink. Dentition is intact. NECK: Shows anterior throat supple without palpable lymphadenopathy noted. Good rotational motion of cervical spine, both laterally as well as extension and flexion. Some mild tenderness with extension, but not with forward flexion, but no radiation. Swallow reflex is symmetrical. No palpable lymphadenopathy noted. CHEST: Normal on inspection. Breath sounds are clear to auscultation. No rales, rhonchi or wheezes auscultated. HEART: Shows S1, S2 clear. No murmurs auscultated. ABDOMEN: Soft, nontender, nondistended. BACK: Shows spine grossly in the midline. Again, normal cervical lordotic curvature, some mild increase in thoracic kyphosis, mild flattening of lumbar lordotic curvature. Palpation shows significant tenderness throughout the cervical paraspinous musculature bilaterally, more on the right than the left into the superior medial right trapezius, especially in the lateral aspect of the right trapezius towards the shoulder. EXTREMITIES: The patient's upper extremities show deep tendon reflexes 2+ in the biceps, triceps tendons. Motor exam is approximately 4 on a scale of 5 with engraver hand hard metals strength, bicep and tricep flexion is about 3/5 on the right, 5/5 on the left. Significant difficulty with abduction of the shoulder where she can only abduct about 45 degrees away from the side with significant pain in the anterior and lateral aspect of the right shoulder. With passive motion, the pain is identical at about 45 degrees abduction, also reaching forward and posterior. There is significant pain in the anterior and lateral aspect of the deltoid region as well, but without radiation further into the upper extremities. Peripheral pulses are 2+ radial. No peripheral edema is noted in the bilateral upper extremities. Lower extremities show deep tendon reflexes 1+ in the patellar and tendo calcaneus tendons are symmetrical. Dorsiflexion and extension is approximately 5/5, quadriceps and hamstring flexion is approximately 4/5, but symmetrical. Peripheral pulses are 1+ posterior tibial. Options were discussed with the patient. The patient's old chart was reviewed as her current medication regimen updated. Current review of systems updated today as well. We will proceed with refill of medications, Duragesic patch as well as oxycodone 10 mg. The patient was given instruction as well as side effects to be aware of each of the medications. She has had appropriate K-TRACS reporting as well as appropriate urinalysis to date. We will refill this for a 2-month period. The patient will return to the clinic. Also, we will have refill of Amitiza and Zanaflex with instructions, side effects to be aware of discussed with all of her medications. She will return to the clinic in approximately 2 months or sooner as necessary. ANGEL EPPS MD DR: LENARD/kiet JOB#: [id number] / [id number]
== END | disposition home or self-care (01) ==
LOC: PNCL 11:15
PROVIDERS: ATTEND Anesthesiology
DX: M19.012 Primary osteoarthritis, left shoulder (principal); M19.011 Primary osteoarthritis, right shoulder
CPT/HCPCS: G0463

== ENCOUNTER → 2019-09-21 | Outpatient (CLI) | payer BC ==
[2013-07-12 15:14] VITALS: BP 108/64
[~2019-09-21] MED LIST changes: -OXYC-411 PO; +OXYC1TAB20 PO
--- NOTE | 2019-09-21 13:10 | PDOC ---
Progress Note - Pain Clinic Date of Service: DOS: DATE: 09/21/19 TIME: 13:04 Diagnosis: Dx: Myofascial pain, cervical radiculopathy, lumbar radiculopathy, shoulder joint pain with primary osteoarthritis right shoulder History or Present Illness: HPI: 49-year-old female returns follow-up status post medication managed with oxycodone and Duragesic patch patient ports is been doing fairly well with this amount very stable regimen still has significant pain in the right shoulder and upper extremity as well as the base the neck upper back mid back and low back as well as the right lower extremity. Patient reports her medication does decrease the pain by about 75% and without significant side effect except for constipation which she is taking Amitiza for which is doing well patient reports still significant pain base the neck shoulders upper back right arm lower back and right leg rated an 8 on scale of 10 is worse in the past week 4-5 on average and a 4 at its least. Patient reports the pain is a 5 today. Patient ports no new side effects no new bowel or bladder incontinence or other complaints feels he is on a very stable regimen again describes the pain as aching and sharp dull tight and stinging in the neck and shoulders upper back mid back with some aching in the low back is becoming constant severe with activity. 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 Physical Exam: VS: Blood pressure 112/66 pulse 75 respiration 16 temperature 90.5 F weight is 1 1 3 pounds PE: PHYSICAL EXAMINATION: GENERAL: The patient is awake, alert, oriented, appropriate, very pleasant demeanor HEENT: Shows normocephalic, atraumatic. Extraocular movements are intact and symmetrical. Oral cavity: Mucous membranes moist and pink. Dentition is intact. NECK: Shows anterior throat supple without palpable lymphadenopathy noted. Swallow reflex symmetrical. CHEST: Shows normal on inspection. Breath sounds are clear bilaterally no rales rhonchi or wheezes auscultated. HEART: Shows S1, S2 clear. No murmurs auscultated. ABDOMEN: Soft, nontender, nondistended. No palpable organomegaly is noted. No rebound or guarding. BACK: Shows spine grossly in the midline. Normal-appearing cervical lordotic curvature. There is slightly increased thoracic kyphosis, some minor flattening of the lumbar lordotic curvature. Lumbar paraspinous muscles show symmetrical on inspection, on palpation shows some moderate tenderness diffusely throughout the upper, middle and lower distribution of the paraspinous muscles bilaterally and also into the lower thoracic paraspinous musculature, firm and tender, but without specific trigger points, and without radiation of pain. The patient has good rotational motion of the lumbar spine, both laterally as well as extension and flexion without significant difficulty. No tenderness over the spinous processes, sacrum or sacroiliac regions. EXTREMITIES: Lower extremities show deep tendon reflexes 1+ in the patellar and tendo calcaneus tendons. Motor exam is 5 on a scale of 5 with right dorsiflexion, extension, quadriceps and hamstring flexion and 5/5 on the left. Peripheral pulses are 1+ posterior tibial. No peripheral edema is noted bilaterally. Lower extremities are warm and dry to touch, equal in color and appearance. Upper extremities show deep tendon reflexes 2+ in the biceps triceps tendons bilaterally. 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 Patient's right shoulder shows significant tenderness with palpation of the anterior deltoid lateral and posterior deltoid with significant pain with abduction greater than about 40 degrees. Left side shows full rotation of motion without significant pain or difficulty. SKIN: Shows warm and dry, good turgor. No edema. No sores, rashes or bruising throughout. Procedure: Procedure: Options were discussed with the patient. Patient's old chart was used her current medication regimen updated current review of systems updated today as well. Patient has been doing very well and been on a very stable regimen with her medication of oxycodone and Duragesic patches. We will refill this for 2- month. As patient has had appropriate K- trax reporting as well as appropriate urinalysis to date. We will have a urinalysis drawn today as well for routine screening Patient return to clinic in approximately 2 months or sooner as necessary.. Medication Injected: Med Injected: None Condition at Discharge: Condition at Discharge: Condition discharge is stable patient will follow-up in approximate 2 months as scheduled or sooner as necessary. ANGEL EPPS MD Sep 21, 2019 13:10
== END | disposition home or self-care (01) ==
LOC: PNCL 11:47
PROVIDERS: ATTEND Anesthesiology
DX: M54.16 Radiculopathy, lumbar region (principal); M54.12 Radiculopathy, cervical region; M79.18 Myalgia, other site; M19.011 Primary osteoarthritis, right shoulder; Z91.018 Allergy to other foods; Z88.8 Allergy status to other drugs, medicaments and biological substances
CPT/HCPCS: 99212; G0463

== ENCOUNTER → 2019-11-16 | Outpatient (CLI) | payer BC ==
[2013-07-12 15:14] VITALS: BP 108/64
--- NOTE | 2019-11-16 12:49 | PDOC ---
Progress Note - Pain Clinic Date of Service: DOS: DATE: 11/16/19 TIME: 12:45 Diagnosis: Dx: Myofascial pain Cervical radiculopathy Lumbar radiculopathy Right shoulder joint pain with osteoarthritis History or Present Illness: HPI: 49-year-old female returns follow-up status post medication management took Duragesic patches and oxycodone as well as a Amitiza for side effects of constipation and tizanidine. Patient reports he is doing fairly well in stable regimen but her right shoulder is becoming much more painful with activity and she is still in contact with her orthopedic surgeon trying to find a time to have her shoulder surgery scheduled has not done that yet however patient reports also pain in the right foot she seen her kiln puller recently who is recommending a forefoot fusion. Patient reports her pain in the shoulder and upper back and neck is an 8 on scale 10 is worse of the past week 4-5 on average for this least is a 5 today patient reports medication however does do well without more side effects than constipation which is controlled well with amities a for about a 7075% improvement overall. Patient reports no other side effects no new motor or sensory deficits or other changes patient comes the pain in the neck and shoulders burning and tingling cramping stabbing also some sharp pain in the right foot aching in the neck and shoulder right upper extremity radiating can be severe and unbearable at times. Reports little sleep about once every 6 hours. Patient reports no new motor or sensory deficits or other complaints Physical Exam: VS: Blood pressure 120/70 pulse 76 respirations 18 temperature 90.1 degrees urine height is 5 foot 1 inch weight is 115 PE: PHYSICAL EXAMINATION: GENERAL: The patient is awake, alert, oriented, appropriate, very pleasant demeanor HEENT: Shows normocephalic, atraumatic. Extraocular movements are intact and symmetrical. Oral cavity: Mucous membranes moist and pink. NECK: Shows anterior throat supple without palpable lymphadenopathy noted. Swallow reflex symmetrical. CHEST: Shows normal on inspection. Breath sounds are clear bilaterally, no rales rhonchi or wheezes auscultated. HEART: Shows S1, S2 clear. No murmurs auscultated. ABDOMEN: Soft, nontender, nondistended. No palpable organomegaly is noted. No rebound or guarding demonstrated. BACK: Shows spine grossly in the midline. Normal-appearing cervical lordotic curvature. There is slightly increased thoracic kyphosis, some minor flattening of the lumbar lordotic curvature. Lumbar paraspinous muscles show symmetrical on inspection, on palpation shows some moderate tenderness diffusely throughout the upper, middle and lower distribution of the paraspinous muscles bilaterally without specific trigger points, without radiation of pain. The patient has good rotational motion of the lumbar spine, both laterally as well as extension and flexion without significant difficulty. No tenderness over the spinous processes, sacrum or sacroiliac regions. EXTREMITIES: Upper extremities show deep tendon reflexes 2+ in the patellar and tendo calcaneus tendons. 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 Peripheral pulses are 2+ radial. No peripheral edema is noted bilaterally. upper extremities are warm and dry to touch, equal in color and appearance. Right shoulder shows significant tenderness with abduction and resistance as well as shoulder shrug and resistance with moderate pain rating the biceps as well as the lateral deltoid. Left shoulder shows better range of motion but still some moderate tenderness with abduction and resistance. SKIN: Shows warm and dry, good turgor. No edema. No sores, rashes or bruising throughout. Procedure: Procedure: Options discussed with the patient. Patient will chart reviews her current medication regimen updated current review of systems updated today as well. We will refill patient's medication as she has been on a very stable regimen thus far and side effects controlled well with Amitiza. Patient is had appropriate K tract report as well as appropriate urinalyses to date we will make this a 2- month prescription refill with instructions side effects beware discussed with each of the medications. Patient will follow-up in approximate 2 months or sooner if necessary. Medication Injected: Med Injected: None Condition at Discharge: Condition at Discharge: Condition at discharge is stable ANGEL EPPS MD Nov 16, 2019 12:49
== END ==
LOC: PNCL 11:33
PROVIDERS: ATTEND Anesthesiology
DX: M54.16 Radiculopathy, lumbar region (principal); M54.12 Radiculopathy, cervical region; M79.18 Myalgia, other site; M19.011 Primary osteoarthritis, right shoulder; Z88.8 Allergy status to other drugs, medicaments and biological substances; Z79.899 Other long term (current) drug therapy
CPT/HCPCS: 99212; G0463

== ENCOUNTER → 2020-01-11 | Outpatient (CLI) | payer BC ==
[2013-07-12 15:14] VITALS: BP 108/64
--- NOTE | 2020-01-11 12:44 | PDOC ---
Progress Note - Pain Clinic Date of Service: DOS: DATE: 01/11/20 TIME: 12:39 Diagnosis: Dx: Myofascial pain Cervical radiculopathy Lumbar radiculopathy lumbar Right shoulder joint pain with osteoarthritis History or Present Illness: HPI: 49-year-old female returns follow-up status post medication management though Duragesic patches and oxycodone also Zanaflex and Amitiza. Patient reports doing fairly well with a very stable regimen with her medications. She reports occasional constipation but is much improved with the Amitiza. Reports having significant pain in the right shoulder which been more noticeable over the past month or so as well as in the mid upper and lower back patient has reported that she has had to quit her job because of the pain because she cannot sit in a chair for very long but she has to change positions. Patient reports that awaken her from sleep about every 4 hours or so in the mid upper back and the right shoulder. Patient reports she still working out details with her orthopedic surgeon regarding shoulder surgery. Patient reports the medication does decrease the pain however by significant amount about 70 to 75%. Patient reports no other side effects besides constipation patient cries pain is aching and sharp tight tingling burning cramping and stabbing in the mid upper back constant and severe in the mid and lower back and stabbing and aching in the right shoulder with some radiation of the right upper extremity to the wrist. Patient ports occasional pain in the right leg as well in a radicular fashion. Patient scribes the pain is a 7-8 on scale 10 is worse over the past week 5-6 on average 5 its least, and is a 7 today. Physical Exam: VS: Blood pressure is 108/73 pulse 67 respirations 18 temperature 90.0 F height is 5 foot 1 his weight is 119 pounds PE: PHYSICAL EXAMINATION: GENERAL: The patient is awake, alert, oriented, appropriate, very pleasant demeanor HEENT: Shows normocephalic, atraumatic. Extraocular movements are intact and sy mmetrical. Oral cavity: Mucous membranes moist and pink. Dentition is intact. NECK: Shows anterior throat supple without palpable lymphadenopathy noted. Swallow reflex symmetrical. CHEST: Shows normal on inspection. Breath sounds are clear bilaterally. HEART: Shows S1, S2 clear. No murmurs auscultated. ABDOMEN: Soft, nontender, nondistended. No palpable organomegaly is noted. No rebound or guarding demonstrated. BACK: Shows spine grossly in the midline. Normal-appearing cervical lordotic curvature. There is slightly increased thoracic kyphosis, some minor flattening of the lumbar lordotic curvature. Lumbar paraspinous muscles show symmetrical on inspection, on palpation shows some moderate tenderness diffusely throughout the upper, middle and lower distribution of the paraspinous muscles bilaterally and also into the middle and lower thoracic paraspinous musculature, firm and tender bilaterally, but without specific trigger points, and without radiation of pain. . No tenderness over the spinous processes, sacrum or sacroiliac regions. EXTREMITIES: Lower extremities show deep tendon reflexes 2+ in the patellar and tendo calcaneus tendons. Motor exam is 4 on a scale of 5 with right dorsiflexion, extension, quadriceps and hamstring flexion and 4/5 on the left. Peripheral pulses are 1+ posterior tibial. No peripheral edema is noted bilaterally. Lower extremities are warm and dry to touch, equal in color and appearance. Upper extremities show deep tendon reflexes 2+ in the biceps triceps tendons bilaterally. Motor exam is approximately 5 on a scale 5 with billet worker strength bicep and tricep flexion is 3 out of 5 on the right and 5 out of 5 on the left. Patient shoulder shows significant pain with forward reaching as well as rearward rotation and abduction of the right shoulder past 45 degrees significant pain in the anterior and posterior as well as superior medial aspect of the shoulder on the right only. SKIN: Shows warm and dry, good turgor. No edema. No sores, rashes or bruising throughout. Procedure: Procedure: Options discussed with the patient. Patient chart reviewed as her current medication regimen updated current review of systems updated today as well. We will refill patient's medications has been on very stable regimen of oxycodone and Duragesic patch also Amitiza and Zanaflex. Patient had appropriate K tracts reporting as well as appropriate urinalyses to date and we will make this a 2- month refill. Patient was given instruction as well as side effects with each of the medications. Also discussed physical therapy regarding her right shoulder and upper mid back she will like to pursue this we will make these arrangements. She will return to clinic in approximate 2 months or sooner as necessary. Medication Injected: Med Injected: None Condition at Discharge: Condition at Discharge: Condition at discharge is stable. ANGEL EPPS MD Jan 11, 2020 12:44
== END | disposition home or self-care (01) ==
LOC: PNCL 11:54
PROVIDERS: ATTEND Anesthesiology
DX: M54.16 Radiculopathy, lumbar region (principal); M54.12 Radiculopathy, cervical region; M19.011 Primary osteoarthritis, right shoulder; M79.18 Myalgia, other site; Z79.899 Other long term (current) drug therapy; Z98.890 Other specified postprocedural states; Z88.8 Allergy status to other drugs, medicaments and biological substances; Z88.5 Allergy status to narcotic agent
CPT/HCPCS: 99212; G0463

== ENCOUNTER → 2020-03-07 | Outpatient (CLI) | payer BC ==
[2013-07-12 15:14] VITALS: BP 108/64
--- NOTE | 2020-03-07 10:08 | PDOC ---
Progress Note - Pain Clinic Date of Service: DOS: DATE: 03/07/20 TIME: 10:02 Diagnosis: Dx: Myofascial pain Lumbar radiculopathy Cervical radiculopathy Right shoulder joint pain with osteoarthritis History or Present Illness: HPI: 50-year-old female returns follow-up status post medication management with Duragesic patches and oxycodone. Patient reports doing very well and has been on a very stable regimen with about a 70 to 75% improvement with the pain without specific side effects except constipation which she takes Amitiza for which works well and only needs it once a week on average. 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 Patient reports no new motor or sensory deficits no new bowel or bladder incontinence patient rates her pain is 8-9 on scale 10 is worse over the past week 4-5 on average 3 to 4 days least is a 5 today patient reports a tingling burning cramp ing in the neck and shoulders with radiating pain in the right upper extremity aching sharp and dull as well as tight in the low back mid back and upper back at that is severe at times with increased activity generally sleeps fairly well at night wakens her from sleep about once every 4 or 5 hours on average. Physical Exam: VS: Blood pressure is 120/69 pulse 80 respirations 18 temperature 98.1 F height is 5 foot 1 his weight is 124 pounds PE: PHYSICAL EXAMINATION: GENERAL: The patient is awake, alert, oriented, appropriate, and very pleasant demeanor HEENT: Shows normocephalic, atraumatic. Extraocular movements are intact and symmetrical. NECK: Shows anterior throat supple without palpable lymphadenopathy noted. Swallow reflex symmetrical. CHEST: Shows normal on inspection. Breath sounds are clear bilaterally, no rales or rhonchi. HEART: Shows S1, S2 clear. No murmurs auscultated. ABDOMEN: Soft, nontender, nondistended, flat. No palpable organomegaly is noted. BACK: Shows spine grossly in the midline. Normal-appearing cervical lordotic curvature. Cervical paraspinous muscles show symmetrical inspection with palpation some moderate tenderness diffusely throughout the upper middle lower decrease the paraspinous muscles bilaterally but only diffusely without radiation. Patient shows good rotation motion cervical spine both laterally as well as extension flexion without significant increase in pain. There is increased thoracic kyphosis, some minor flattening of the lumbar lordotic curvature. Lumbar paraspinous muscles show symmetrical on inspection, on palpation shows some moderate tenderness diffusely throughout the upper, middle and lower distribution of the paraspinous muscles without specific trigger points, without radiation of pain. The patient has good rotational motion of the lumbar spine, both laterally as well as extension and flexion without significant difficulty. EXTREMITIES: Lower extremities show deep tendon reflexes 1+ in the patellar and tendo calcaneus tendons. Motor exam is 5 on a scale of 5 with right dorsiflexion, extension, quadriceps and hamstring flexion and 5/5 on the left. Peripheral pulses are 1+ posterior tibial. No peripheral edema is noted bilaterally. Lower extremities are warm and dry to touch, equal in color and appearance. Upper extremities show deep tendon reflexes 2+ in the bicep and triceps tendons are equal motor exam is approximately 4 on a scale of 5 with right supervisor [employer] strength bicep and tricep flexion 5 out of 5 on the left patient's right shoulder shows significant tenderness with attempted abduction past about 40 to 45degrees as well as significant tenderness with shoulder shrug and resistance but no loss of strength on resistance on the right side. SKIN: Shows warm and dry, good turgor. No edema. No sores, rashes or bruising throughout. Procedure: Procedure: Options were discussed with the patient. Patient chart was reviewed as her current medication regimen updated current review of systems updated today as well. We will proceed with refill of patient's medication both Duragesic patch and oxycodone as well as Amitiza and Zanaflex. Patient given instructions will side effects beware of each of the medications will follow up in approximately 2 months. Patient was given a 2-month prescription as she has had appropriate K tracts reporting as well as appropriate urinalyses to date. We will have a urinalysis done today as routine screening as well as new narcotic contract signed as well. Medication Injected: Med Injected: None Condition at Discharge: Condition at Discharge: Condition at discharge is stable. ANGEL EPPS MD Mar 07, 2020 10:08
== END | disposition home or self-care (01) ==
LOC: PNCL 09:19
PROVIDERS: ATTEND Anesthesiology
DX: M54.16 Radiculopathy, lumbar region (principal); M54.12 Radiculopathy, cervical region; M79.10 Myalgia, unspecified site; M19.011 Primary osteoarthritis, right shoulder; Z79.899 Other long term (current) drug therapy; Z88.8 Allergy status to other drugs, medicaments and biological substances; Z88.5 Allergy status to narcotic agent
CPT/HCPCS: 99212; G0463

== ENCOUNTER → 2020-05-10 | Outpatient (CLI) | payer BC ==
[2013-07-12 15:14] VITALS: BP 108/64
--- NOTE | 2020-05-10 15:31 | PDOC ---
Progress Note - Pain Clinic Date of Service: DOS: DATE: 05/10/20 TIME: 15:25 Diagnosis: Dx: Myofascial pain Cervical radiculopathy Lumbar radiculopathy Right shoulder joint pain with osteoarthritis History or Present Illness: HPI: 50-year-old female returns in follow-up status post medication management with oxycodone and Duragesic patches as well as Zanaflex. Patient also taking Amitiza for constipation which works very and successfully for her. Patient reports has been on very stable regimen indeed has had good results with decrease in pain by about 70% or better with the medications and without significant side effect except for the constipation. Patient reports still significant pain in the right shoulder rating the right upper extremity also mid back neck low back and right lower extremity patient reports recently she is having some difficulty with her 4-year-old grandchild who she is raising which is caused some emotional stress as well as a physical stress at home to which the pain is been increased over the last month or so patient rates it 8 on scale 10 is worse over the past week 5 on average for its least and is an 8 today patient reports is aching and unbearable at times radiating shooting pain in the right arm and right lower extremity dull and tight in the back and neck as well patient reports it does awaken her from sleep about every 4-5 hours on most nights pain from either the neck or the low back right arm or right lower extremity or the right shoulder. Patient reports that she is unable to schedule right shoulder surgery which she needs rotator cuff repair by her report is unable to find coverage at work and coverage for watching her granddaughter currently. Physical Exam: VS: Blood pressure is 109/66 pulse 83 respirations 18 temperature 98.0 F height 5 foot 1 his weight is 123 pounds PE: PHYSICAL EXAMINATION: GENERAL: The patient is awake, alert, oriented, appropriate, very pleasant demeanor HEENT: Shows normocephalic, atraumatic. Extraocular movements are intact and symmetrical. Oral cavity: Mucous membranes moist and pink. Dentition is intact. NECK: Shows anterior throat supple without palpable lymphadenopathy noted. Swallow reflex symmetrical. CHEST: Shows normal on inspection. Breath sounds are clear bilaterally, no rales or rhonchi. HEART: Shows S1, S2 clear. No murmurs auscultated. ABDOMEN: Soft, nontender, nondistended, obese. No palpable organomegaly is noted. BACK: Shows spine grossly in the midline. Normal-appearing cervical lordotic curvature. Cervical paraspinous muscles show symmetrical on inspection with palpation some moderate tenderness diffusely in the inferior aspect of the paraspinous musculature as well as into the superior medial trapezius bilaterally but without radiation. There is slightly increased thoracic kyphosis, some minor flattening of the lumbar lordotic curvature. Lumbar paraspinous muscles show symmetrical on inspection, on palpation shows some moderate tenderness diffusely throughout the upper, middle and lower distribution of the paraspinous muscles, but without specific trigger points, without radiation of pain. The patient has good rotational motion of the lumbar spine, both laterally as well as extension flexion with some moderate tenderness with rotation laterally right and left greater than 10 degrees minor tenderness with extension and no pain reported with forward flexion at 45 degrees which is performed without difficulty. EXTREMITIES: Lower extremities show deep tendon reflexes 2+ in the patellar and tendo calcaneus tendons. Motor exam is 4 on a scale of 5 with right dorsiflexion, extension, quadriceps and hamstring flexion and 5/5 on the left. Peripheral pulses are 1+ posterior tibial. No peripheral edema is noted bilaterally. Lower extremities are warm and dry to touch, equal in color and appearance. Upper extremity show deep tendon reflexes 2+ in the bicep and tricep tendons motor exam is strong with icu clerk strength rated 5 out of 5 and approximately 4 out of 5 with biceps on the right and 5 out of 5 on the left patient shoulder shows significant tenderness with abduction on the right past about 45 degrees and shoulder shrug is intact but with significant pain with resistance on the right side only. Upper extremity peripheral pulses are 2+ radial bilaterally no peripheral edema. SKIN: Shows warm and dry, good turgor. No edema. No sores, rashes or bruising throughout. Procedure: Procedure: Options were discussed with the patient. Patient's old chart was reviewed as her current medication regimen updated current review of systems updated today as well. We will refill patient's medication both Duragesic patch as well as oxycodone and Zanaflex, patient reports her insurance is no longer covering Amitiza I asked her to check with her pharmacist to see if there is a substitute that would be covered and we will take care of this as well. Patient is given instructions well side effects aware of each of the medications. Patient had appropriate K tracks report as well as appropriate urinalyses to date and we will make this a 2-month refill prescription. Patient will return to clinic approximate 2 months or sooner as necessary. Medication Injected: Med Injected: None Condition at Discharge: Condition at Discharge: Condition at discharge is stable. ANGEL EPPS MD May 10, 2020 15:31
== END | disposition home or self-care (01) ==
LOC: PNCL 14:17
PROVIDERS: ATTEND Anesthesiology
DX: M54.16 Radiculopathy, lumbar region (principal); M54.12 Radiculopathy, cervical region; M79.18 Myalgia, other site; M19.011 Primary osteoarthritis, right shoulder; Z98.890 Other specified postprocedural states; Z88.6 Allergy status to analgesic agent; Z91.018 Allergy to other foods
CPT/HCPCS: 99212; G0463

== ENCOUNTER → 2020-07-17 | Outpatient (CLI) | payer BC ==
[2013-07-12 15:14] VITALS: BP 108/64
[~2020-07-17] MED LIST changes: +HERB1TAB PO; +[UNRECOGNIZED DRUG - OTHER]; +nasocort
--- NOTE | 2020-07-17 11:35 | PDOC ---
Progress Note - Pain Clinic Date of Service: DOS: DATE: 07/17/20 TIME: 11:30 Diagnosis: Dx: Lumbar radiculopathy Cervical radiculopathy Myofascial pain Right shoulder joint pain with osteoarthritis History or Present Illness: HPI: 50-year-old female returns for follow-up status post medication management with Duragesic patch and oxycodone as well as Zanaflex. Patient reports doing fairly well on her current regimen has been for some time now with about an 75% improvement with the medications and only side effect being constipation which she is taking Amitiza for which does do very well. Patient reports still significant pain of the right shoulder upper back mid back neck and lower back some radiating pain in the right lower extremity as well but generally well controlled with the medications. Patient reports her right shoulder is still becoming more painful with activity she is also taking care of her granddaughter who is almost 5 years old at this time. Patient reports he does have some help at home now to take care of her daughter and is considering rescheduling her right shoulder surgery as she has had to put this off secondary to these social arrangements. Patient reports her pain is a 7-8 on scale 10 is worse over the past week for an average 4 to sleep and is a 6 today. Patient describes as aching and sharp in the shoulder dull and tight in the back and neck some tingling and burning in the shoulder and arm as well as cramping and stabbing in the neck shoulders neck mid and upper back. Patient reports no new motor or sensory deficits no new bowel or bladder incontinence and again no other side effects with the medication. Physical Exam: VS: Blood pressure 114/73 pulse 83 respirations 16 temperature 98.2 F height is 5 foot 1 inch weight is 125 pounds PE: PHYSICAL EXAMINATION: GENERAL: The patient is awake, alert, oriented, appropriate, very pleasant in demeanor HEENT: Shows normocephalic, atraumatic. Extraocular movements are intact and symmetrical. Oral cavity: Mucous membranes moist and pink. Dentition is intact. NECK: Shows anterior throat supple without palpable lymphadenopathy noted. Swallow reflex symmetrical. CHEST: Shows normal on inspection. Breath sounds are clear bilaterally. HEART: Shows S1, S2 clear. No murmurs auscultated. ABDOMEN: Soft, nontender, nondistended. No palpable organomegaly is noted. BACK: Shows spine grossly in the midline. Normal-appearing cervical lordotic curvature. Cervical paraspinous muscles show symmetrical inspection, on palpation some moderate tenderness diffusely in the middle and lower distribution the paraspinous muscles also into the superior medial and lateral trapezius but only diffusely without specific trigger points. Cervical spine shows full rotation motion both laterally greater than 45 degrees closer to 90 degrees as well as full extension full forward flexion without significant difficulty. There is mildly increased thoracic kyphosis, some flattening of the lumbar lordotic curvature. Lumbar paraspinous muscles show symmetrical on inspection, on palpation shows some moderate tenderness diffusely throughout the upper, middle and lower distribution of the paraspinous muscles, but without specific trigger points, without radiation of pain. The patient has good rotational motion of the lumbar spine, both laterally as well as extension and flexion without significant difficulty. EXTREMITIES: Lower extremities show deep tendon reflexes 2+ in the patellar and tendo calcaneus tendons. Motor exam is 4 on a scale of 5 with right dorsiflexion, extension, quadriceps and hamstring flexion and 5/5 on the left. Peripheral pulses are 1+ posterior tibial. No peripheral edema is noted bilaterally. Lower extremities are warm and dry to touch, equal in color and appearance. Upper extremity show deep tendon reflexes 2+ in the bicep tricep tendons motor exam is passing 4 to scale 5 on the right and 5/5 on the left right shoulder shows significant tenderness with attempted abduction past 45 degrees very tender with easily loss of strength with shoulder shrug as well as resistance with abduction on the right only. SKIN: Shows warm and dry, good turgor. No edema. No sores, rashes or bruising throughout. Procedure: Procedure: Options discussed with the patient. Patient chart was reviewed as her current medication regimen updated current review of systems updated today as well. We will proceed with refill of patient's medication both Duragesic patch as well as oxycodone and Zanaflex and Amitiza. Patient has had appropriate K tracks report as well as appropriate urinalyses to date. Patient was given instructions well side effects with each of the medications and will follow up in approximate 2 months or sooner if necessary. Medication Injected: Med Injected: None Condition at Discharge: Condition at Discharge: Condition at discharge is stable. ANGEL EPPS MD Jul 17, 2020 11:35
== END | disposition home or self-care (01) ==
LOC: PNCL 10:45
PROVIDERS: ATTEND Anesthesiology
DX: M54.16 Radiculopathy, lumbar region (principal); M54.12 Radiculopathy, cervical region; M79.18 Myalgia, other site; M19.011 Primary osteoarthritis, right shoulder; Z79.899 Other long term (current) drug therapy; Z88.8 Allergy status to other drugs, medicaments and biological substances
CPT/HCPCS: 99212; G0463

== ENCOUNTER → 2020-09-18 | Outpatient (CLI) | payer BC ==
[2013-07-12 15:14] VITALS: BP 108/64
[~2020-09-18] MED LIST changes: +FENT1PAT93 TD; +OXYC1TAB22 PO
--- NOTE | 2020-09-18 13:02 | PDOC ---
Progress Note - Pain Clinic Date of Service: DOS: DATE: 09/18/20 TIME: 12:58 Diagnosis: Dx: Myofascial pain Lumbar radiculopathy Cervical radiculopathy Right shoulder joint pain with osteoarthritis History or Present Illness: HPI: 50-year-old female returns for follow-up status post medication management with Duragesic patch oxycodone Zanaflex and Amitiza. Patient returns reporting's fairly significant control of pain about 70 to 75% with the medication regimen currently patient chief complaint is right shoulder joint pain she has some significant pain and is pending reconstructive surgery on the right shoulder however has been having difficulty with social activities and her granddaughter is getting this scheduled patient reports this is improving to some extent at this point I rates her pain in her shoulders a 7 on scale 10 is worse over the past week 4-5 on average at a 4 to sleep is a 5 today patient was aching sharp tight tingling cramping can be cramping and stabbing and burning and can be constant severe with repetitive motion use or weight lifting with the right upper extremity. Patient reports her medications however doing very well occasi onal constipation but she is not using Amitiza daily to be once a week at this point it is taking care of hydration for the rest of the constipation as well as [id number] laxatives which seem to be working fairly well for her at this time. Patient reports no new motor or sensory deficits no other side effects with her medications at this time. Physical Exam: VS: Blood pressure is 122/68 pulse 84 respirations 18 temperature is 98.2 F height is 5 foot 1 his weight is 125 pounds PE: PHYSICAL EXAMINATION: GENERAL: The patient is awake, alert, oriented, appropriate, very pleasant in demeanor. HEENT: Shows normocephalic, atraumatic. Extraocular movements are intact and symmetrical. Oral cavity: Mucous membranes moist and pink. Dentition is intact. NECK: Shows anterior throat supple without palpable lymphadenopathy noted. Swallow reflex symmetrical. CHEST: Shows normal on inspection. Breath sounds are clear bilaterally, distant but no rales rhonchi or wheezes auscultated. HEART: Shows S1, S2 clear. No murmurs auscultated. ABDOMEN: Soft, nontender, nondistended, flat. No palpable organomegaly is noted. BACK: Shows spine grossly in the midline. Normal-appearing cervical lordotic curvature. Cervical paraspinous muscles show symmetrical with inspection, on palpation some mild tenderness in the inferior aspect cervical paraspinous musculature but without radiation. Patient shows full rotation of motion cervical spine both laterally as well as extension flexion without difficulty or limitation. There is slightly increased thoracic kyphosis, some flattening of the lumbar lordotic curvature. Lumbar paraspinous muscles show symmetrical on inspection, on palpation shows some moderate tenderness diffusely throughout the upper, middle and lower distribution of the paraspinous muscles without specific trigger points, without radiation of pain. The patient has good rotational motion of the lumbar spine, both laterally as well as extension and flexion with out significant difficulty. EXTREMITIES: Lower extremities show deep tendon reflexes 2+ in the patellar and tendo calcaneus tendons. Motor exam is 4 on a scale of 5 with right dorsiflexion, extension, quadriceps and hamstring flexion and 5/5 on the left. Peripheral pulses are 1+ posterior tibial. No peripheral edema is noted bilaterally. Lower extremities are warm and dry. Upper extremity show deep tendon reflexes 2+ in the bicep tricep tendons, motor exam is positive for scale 5 on the right and 5 out of 5 on the left outpatient admitting clerk strength bicep and tricep flexion patient's right shoulder shows significant tenderness with even passive abduction past 45 degrees as well as with shoulder shrug with some significant loss of strength on resistance on the right side only. Left side shows full rotation without significant pain with passive or active rotation. SKIN: Shows warm and dry, good turgor. No edema. No sores, rashes or bruising throughout. Procedure: Procedure: Options were discussed with the patient. Patient chart reviews her current medication regimen updated current review of systems updated today as well. We will refill patient's Duragesic patch as well as oxycodone Amitiza and Zanaflex. Patient was given instructions well side effects aware of each of the medications. Patient has had appropriate K tracks report as well as appropriate urinalyses to date we will make this a 1 month refill. Medications will be electronically prescribed today. Medication Injected: Med Injected: None Condition at Discharge: Condition at Discharge: Condition at discharge is stable. ANGEL EPPS MD Sep 18, 2020 13:02
== END | disposition home or self-care (01) ==
LOC: PNCL 11:44
PROVIDERS: ATTEND Anesthesiology
DX: M19.011 Primary osteoarthritis, right shoulder (principal); M54.12 Radiculopathy, cervical region; M54.16 Radiculopathy, lumbar region; M79.18 Myalgia, other site; Z79.899 Other long term (current) drug therapy; Z88.8 Allergy status to other drugs, medicaments and biological substances
CPT/HCPCS: 99212; G0463

== ENCOUNTER → 2020-12-18 | Outpatient (CLI) | payer BC ==
[2013-07-12 15:14] VITALS: BP 108/64
[~2020-12-18] MED LIST changes: +SUMA4PEN SQ; -SUMA4PEN2 SQ
--- NOTE | 2020-12-18 13:56 | PDOC ---
Progress Note - Pain Clinic Date of Service: DOS: DATE: 12/18/20 TIME: 13:52 Diagnosis: Dx: Myofascial pain Lumbar radiculopathy Cervical radiculopathy Right shoulder joint pain with osteoarthritis History or Present Illness: HPI: 50-year-old female returns for follow-up status post medication management with both Duragesic patch and oxycodone as well as Amitiza and Zanaflex patient reports doing very well with each of the medications and has had no significant side effects with any of them is been on a very stable regimen with the narcotic medications which controls her pain fairly well patient reports about a 60% improvement at this time sometimes it is 70 or 80% improvement lately has been about 60% and she is having difficulty with her right foot she has some injury to her right ankle and is wearing a boot at times but does not have that with her today. Patient reports still some pain in the right shoulder as well as the upper back mid back and low back still pending surgery on the right shoulder when she can manage that with her schedules. Patient reports the meantime she is doing fairly well again no side effects except for constipation with the medications and the Amitiza helps that significantly. Patient rates her pain as an 8 on scale 10 is worse over the past week 4-5 on average 3-4 to sleep is a 5 today patient scribes aching sharp dull tight shooting burning cramping stabbing radiating constant in the back can be throbbing aching cramping and stabbing in the right foot as well as in the right shoulder and arm. Patient reports no loss of motor function but some significant fatigability of the right shoulder and arm especially the right foot lately. Patient reports it wakes him sleep every 3-4 hours with the pain. Physical Exam: VS: Blood pressure is 120/62 pulse 75 respirations 18 temperature is 98.5 F height is 5 foot 1 inches weight is 132 pounds. PE: PHYSICAL EXAMINATION: GENERAL: The patient is awake, alert, oriented, appropriate, very pleasant in demeanor HEENT: Shows normocephalic, atraumatic. Extraocular movements are intact and symmetrical. Oral cavity: Mucous membranes moist and pink. Dentition is intact. NECK: Shows anterior throat supple without palpable lymphadenopathy noted. Swallow reflex symmetrical. CHEST: Shows normal on inspection. Breath sounds are clear bilaterally, no rales rhonchi or wheeze. HEART: Shows S1, S2 clear. No murmurs auscultated. ABDOMEN: Soft, nontender, nondistended. No palpable organomegaly is noted. BACK: Shows spine grossly in the midline. Normal-appearing cervical lordotic curvature. There is slightly increased thoracic kyphosis, some flattening of the lumbar lordotic curvature. Lumbar paraspinous muscles show symmetrical on inspection, on palpation shows some moderate tenderness diffusely throughout the upper, middle and lower distribution of the paraspinous muscles, but without specific trigger points, without radiation of pain. The patient has good rotational motion of the lumbar spine, both laterally as well as extension and flexion without significant difficulty. EXTREMITIES: Lower extremities show deep tendon reflexes 2+ in the patellar and tendo calcaneus tendons. Motor exam is 4 on a scale of 5 with right dorsiflexion, extension, quadriceps and hamstring flexion and 5/5 on the left. Peripheral pulses are 1+ posterior tibial. No peripheral edema is noted bilaterally. Lower extremities are warm and dry to touch, equal in color and appearance. Upper extremity show deep tendon reflexes 2+ in the bicep tricep tendons motor exam is positive for scale 5 with right business performance manager strength bicep and tricep flexion and 5 out of 5 on the left. Peripheral pulses are 2+ radial. Right shoulder shows significant tenderness with abduction past about 40 to 45 degrees and with forward extension and with resistance significant pain is demonstrated as well on the right shoulder. SKIN: Shows warm and dry, good turgor. No edema. No sores, rashes or bruising throughout. Procedure: Procedure: Options were discussed with the patient. Patient's old chart reviewed his current medication regimen updated current review of systems updated today as well. We will refill patient's Duragesic patch as well as oxycodone via electronic prescription for 1 month refill. Patient has had appropriate K tracks report as well as appropriate urinalyses to date. Patient will have urinalysis as routine screening today as well. Patient given instructions well side effects aware of these medications will follow up in approximate 4 weeks as scheduled. Medication Injected: Med Injected: None Condition at Discharge: Condition at Discharge: Condition at discharge is stable. ANGEL EPPS MD Dec 18, 2020 13:56
== END | disposition home or self-care (01) ==
LOC: PNCL 13:21
PROVIDERS: ATTEND Anesthesiology
DX: M54.16 Radiculopathy, lumbar region (principal); M54.12 Radiculopathy, cervical region; M79.18 Myalgia, other site; M19.011 Primary osteoarthritis, right shoulder; Z79.899 Other long term (current) drug therapy; Z88.8 Allergy status to other drugs, medicaments and biological substances
CPT/HCPCS: 99212; G0463

== ENCOUNTER → 2021-01-17 | Outpatient (CLI) | payer BC ==
[2013-07-12 15:14] VITALS: BP 108/64
[~2021-01-17] MED LIST changes: +FENT1PAT21 TP
--- NOTE | 2021-01-17 16:09 | PDOC ---
Progress Note - Pain Clinic Date of Service: DOS: DATE: 01/17/21 TIME: 16:06 Diagnosis: Dx: Myofascial pain Lumbar radiculopathy Cervical radiculopathy Right shoulder joint pain with osteoarthritis History or Present Illness: HPI: Telemedicine visit today with patient's identity verified with full date of as well as full name, total time spent 12 minutes 50-year-old female via telemedicine visit today requesting refill of both Duragesic patches and oxycodone patient doing very well with these has been on very stable regimen with the medications without significant side effects. Patient reports occasional constipation but she is controlling this fairly well with MiraLAX and increase hydration. Patient reports still have significant pain base the neck and shoulders posterior right shoulder and is still awaiting surgery for the right shoulder when she is able to find the time to take off for recovery from the surgery. Patient reports no new motor or sensory deficits patient has had appropriate K tracks report as well as appropriate urinalyses to date as well. We will refill patient's medication for a 30-day period. We discussed instructions and side effects to be aware of with the each of the medications. Patient will follow up in approximately 4 weeks as scheduled. ANGEL EPPS MD Jan 17, 2021 16:09
== END | disposition home or self-care (01) ==
LOC: PNCL 11:26
PROVIDERS: ATTEND Anesthesiology
DX: M54.16 Radiculopathy, lumbar region (principal); M54.12 Radiculopathy, cervical region; M79.18 Myalgia, other site; M19.011 Primary osteoarthritis, right shoulder; Z79.899 Other long term (current) drug therapy; Z88.8 Allergy status to other drugs, medicaments and biological substances
CPT/HCPCS: 99212; G0463

== ENCOUNTER → 2021-02-14 | Outpatient (CLI) | payer BC ==
[2013-07-12 15:14] VITALS: BP 108/64
--- NOTE | 2021-02-14 12:03 | PDOC ---
Progress Note - Pain Clinic Date of Service: DOS: DATE: 02/14/21 TIME: 11:59 Diagnosis: Dx: Myofascial pain Lumbar radiculopathy Cervical radiculopathy Right shoulder joint pain with osteoarthritis History or Present Illness: HPI: 51-year-old female returns for follow-up status post medication management with both Duragesic patches and oxycodone. Patient reports doing very well has been on a very stable regimen with these medications and without any significant side effects other than occasional constipation patient reports increasing hydration generally takes care of that as well as fgys-fah-vgyawuy laxative as well. Patient takes Amitiza but not daily to help with the constipation if it gets to be severe. Patient reports also taking Zanaflex which does decrease the pain and increased mobility with her low back most noticeably. Again patient reports no side effects with any of the medications and is on a very stable regimen has had appropriate K tracks report as well as appropriate urinalyses to date. Patient rates her pain as a 7-8 on scale 10 is worse with the past week 4 out of 5 on average and a fortis least is a 5 today. Patient reports aching sharp tight base of neck right shoulder especially noticeable with repetitive motion sleeping on her right side does awaken her from sleep about every 3 hours or so patient reports pain is radiating low back right lower extremity posterior gluteus lateral thigh anterior thigh and lateral calf into the arm and extremity in the posterior scapular region also on the right deltoid tricep and bicep area and posterior forearm and hand as well. Patient reports no loss of motor function no bowel or bladder incontinence. Physical Exam: VS: Blood pressure is 114/58 pulse 72 respirations 18 temperature is 98.0 F Weight is 128 pounds PE: PHYSICAL EXAMINATION: GENERAL: The patient is awake, alert, oriented, appropriate, very pleasant and demeanor HEENT: Shows normocephalic, atraumatic. Extraocular movements are intact and symmetrical. Oral cavity: Mucous membranes moist and pink. Dentition is intact. NECK: Shows anterior throat supple without palpable lymphadenopathy noted. Swallow reflex symmetrical. CHEST: Shows normal on inspection. Breath sounds are clear bilaterally, distant but no rales or rhonchi. HEART: Shows S1, S2 clear. No murmurs auscultated. ABDOMEN: Soft, nontender, nondistended. No palpable organomegaly is noted. BACK: Shows spine grossly in the midline. Normal-appearing cervical lordotic curvature. Cervical paraspinous muscles show symmetrical with inspection, moderate tenderness with palpation throughout the middle and lower distribution the paraspinous muscles more on the right than the left but present bilaterally without significant radiation atrophy hypertrophy or trigger points. There is slightly increased thoracic kyphosis, some flattening of the lumbar lordotic curvature. Lumbar paraspinous muscles show symmetrical on inspection, on palpation shows some moderate tenderness diffusely throughout the upper, middle and lower distribution of the paraspinous muscles, but without specific trigger points, without radiation of pain. The patient has good rotational motion of the lumbar spine, both laterally as well as extension and flexion without significant difficulty. No tenderness over the spinous processes, sacrum or sacroiliac regions. EXTREMITIES: Lower extremities show deep tendon reflexes 2+ in the patellar and tendo calcaneus tendons. Motor exam is 4 on a scale of 5 with right dorsiflexion, extension, quadriceps and hamstring flexion and 5/5 on the left. Peripheral pulses are 1+ posterior tibial. No peripheral edema is noted bilaterally. Lower extremities are warm and dry to touch, equal in color and appearance. Upper extremities show deep tendon reflexes 2+ in the bicep tricep tendons motor exam is 4 on scale 5 with right supervisor wrapping room strength bicep and tricep flexion 5 out of 5 on the left. SKIN: Shows warm and dry, good turgor. No edema. No sores, rashes or bruising throughout. Procedure: Procedure: Options were discussed with the patient. Patient's old chart was reviewed as her current medication regimen updated current review of systems updated today as well. We will refill patient's oxycodone as well as Duragesic patch Zanaflex and Amitiza with instructions side effects were discussed with each of the medications. Again, patient has been on very stable regimen has had appropriate K tracks reporting as well as appropriate urinalyses to date. We will make the refill for 30-day period. Patient will follow-up in approximate 30 days as scheduled. Medication Injected: Med Injected: None Condition at Discharge: Condition at Discharge: Condition at discharge is stable. ANGEL EPPS MD Feb 14, 2021 12:03
== END | disposition home or self-care (01) ==
LOC: PNCL 11:17
PROVIDERS: ATTEND Anesthesiology
DX: M79.18 Myalgia, other site (principal); M54.16 Radiculopathy, lumbar region; M54.12 Radiculopathy, cervical region; M19.011 Primary osteoarthritis, right shoulder; Z79.899 Other long term (current) drug therapy; Z88.8 Allergy status to other drugs, medicaments and biological substances
CPT/HCPCS: 99212; G0463

== ENCOUNTER → 2021-03-14 | Outpatient (CLI) | payer BC ==
[2013-07-12 15:14] VITALS: BP 108/64
--- NOTE | 2021-03-14 12:59 | NUR ---
Pt called clinic requesting her monthly refill for oxycodone and fentanyl. Pt verified name and . States that pain level is never below 4, and in the last month has been averaging 8-9/10 which she attributes to the weather. She denies any new issues. Continues to use [facility] pharmacy at [address] [place] [address]. Her next appointment is scheduled for April 11, 2021. Denies constipation; takes OTC supplements to stay regular. Transferred call to Dr. Cantu for further evaluation.
--- NOTE | 2021-03-14 13:19 | PDOC ---
Progress Note - Pain Clinic Date of Service: DOS: DATE: 03/14/21 TIME: 13:17 Diagnosis: Dx: Myofascial pain Lumbar radiculopathy Cervical radiculopathy Right shoulder joint pain with osteoarthritis History or Present Illness: HPI: Telemedicine visit today with patient's identity verified with full name as well as date of , total time spent 14 minutes 51-year-old female via telemedicine visit today with request for refill of Duragesic patch as well as oxycodone. Patient has been on very stable regimen with the medications reports doing very well without side effects patient reports her right shoulder however is becoming worse over the past month or so also the mid back and low back and increased headaches patient reports right shoulder still needing surgery she is still doing the rehab exercises with it but is still significantly painful. Patient is still making some arrangements with her family life regarding time to have the surgery done on the right shoulder. Patient reports no side effects with her medications has had appropriate K tracks report as well as appropriate urinalyses as well to date. We discussed options in detail with patient and we will refill her methadone as well as oxycodone for 1 month supply. Patient was given instructions well side effects aware of each of the medications and will follow up in approximately 30 days as scheduled. Physical Exam: PE: ANGEL EPPS MD Mar 14, 2021 13:19
== END | disposition home or self-care (01) ==
LOC: PNCL 12:04
PROVIDERS: ATTEND Anesthesiology
DX: M79.18 Myalgia, other site (principal); M54.16 Radiculopathy, lumbar region; M54.12 Radiculopathy, cervical region; M19.011 Primary osteoarthritis, right shoulder; Z79.899 Other long term (current) drug therapy; Z98.890 Other specified postprocedural states; Z88.8 Allergy status to other drugs, medicaments and biological substances
CPT/HCPCS: 99212; G0463

== ENCOUNTER → 2021-04-11 | Outpatient (CLI) | payer BC ==
[2013-07-12 15:14] VITALS: BP 108/64
--- NOTE | 2021-04-11 13:12 | PDOC ---
Progress Note - Pain Clinic Date of Service: DOS: DATE: 04/11/21 TIME: 13:06 Diagnosis: Dx: Myofascial pain Right shoulder joint pain with osteoarthritis Lumbar radiculopathy Cervical radiculopathy History or Present Illness: HPI: 51-year-old female returns for follow-up status post medication management with Duragesic patches and oxycodone as well as Amitiza for constipation and Zanaflex for muscle relaxation. Patient reports she is doing very well with each of the medications no significant side effects except for constipation with Amitiza does help significantly patient reports still significant pain in the right shoulder as well as in the mid low back and the right arm. Patient reports about 70 to 75% improvement with the medication without any significant side effects again other than the constipation was well controlled with Amitiza and hydration. Patient rates her pain as 8-9 on scale 10 is worse over the past week 5-6 on average 5 to Sleasman is a 6 today patient reports aching sharp and dull in the back and shoulder aching and throbbing in the shoulder as well with repetitive motions reaching or weightbearing patient reports tingling and b urning in the back as well as stabbing pain in the neck and shoulders as well as the low back can be severe and constant with activity. Patient reports generally wakes her from sleep about once or twice a night she needs to reposition and get back to sleep patient reports no bowel or bladder incontinence. Physical Exam: VS: Blood pressure is 109/70 pulse 69 respirations 18 temperature 97.6 F weight is 129 pounds. PE: PHYSICAL EXAMINATION: GENERAL: The patient is awake, alert, oriented, appropriate, very pleasant in demeanor HEENT: Shows normocephalic, atraumatic. Extraocular movements are intact and symmetrical. Oral cavity: Mucous membranes moist and pink. Dentition is intact. NECK: Shows anterior throat supple without palpable lymphadenopathy noted. Swallow reflex symmetrical. CHEST: Shows normal on inspection. Breath sounds are clear bilaterally. HEART: Shows S1, S2 clear. No murmurs auscultated. ABDOMEN: Soft, nontender, nondistended. No palpable organomegaly is noted. BACK: Shows spine grossly in the midline. Normal-appearing cervical lordotic curvature. Cervical paraspinous muscles show symmetrical inspection on palpation some moderate tenderness diffusely bilaterally diffusely without significant radiation no atrophy hypertrophy or trigger points patient does show good rotation motion cervical spine with lateral as well as full extension full forward flexion without significant difficulty or limitation. There is slightly increased thoracic kyphosis, some minor flattening of the lumbar lordotic curvature. Lumbar paraspinous muscles show symmetrical on inspection, on palpation shows some moderate tenderness diffusely throughout the upper, middle and lower distribution of the paraspinous muscles, but without specific trigger points, without radiation of pain. The patient has good rotational motion of the lumbar spine, both laterally as well as extension and flexion without significant difficulty. No tenderness over the spinous processes, sacrum or sacroiliac regions. EXTREMITIES: Lower extremities show deep tendon reflexes 2+ in the patellar and tendo calcaneus tendons. Motor exam is 4 on a scale of 5 with right dorsiflexion, extension, quadriceps and hamstring flexion and 5/5 on the left. Peripheral pulses are 1 posterior tibial. No peripheral edema is noted bilaterally. Lower extremities are warm and dry to touch, equal in color and appearance. Upper extremity show deep tendon reflexes 2+ in the bicep tricep tendons, motor exam is positive for scale 5 on the right and 5 out of 5 in the left. Patient's right shoulder shows significant tenderness with palpation over the anterior aspect of the biceps groove as well as the lateral and posterior deltoid with tenderness with abduction past about 45 degrees. Left side shows full rotation motion without significant tenderness with range of motion or palpation. SKIN: Shows warm and dry, good turgor. No edema. No sores, rashes or bruising throughout. Procedure: Procedure: Options were discussed with patient. Patient chart was reviewed as her current medication regimen updated current review of systems updated today as well. We will refill patient's Duragesic patch as well as oxycodone, Zanaflex and Amitiza. Patient was given instructions well side effects beware of each of the medications. Patient has had appropriate K tracks portables appropriate urinalyses to date. We will make the prescription for 30-day prescription and patient will follow up in approximate 30 days as scheduled. Medication Injected: Med Injected: None Condition at Discharge: Condition at Discharge: Condition at discharge is stable. ANGEL EPPS MD Apr 11, 2021 13:12
== END | disposition home or self-care (01) ==
LOC: PNCL 11:42
PROVIDERS: ATTEND Anesthesiology
DX: M79.18 Myalgia, other site (principal); M19.011 Primary osteoarthritis, right shoulder; M54.16 Radiculopathy, lumbar region; M54.12 Radiculopathy, cervical region; Z79.899 Other long term (current) drug therapy; Z88.8 Allergy status to other drugs, medicaments and biological substances
CPT/HCPCS: 99212; G0463

== ENCOUNTER → 2021-05-13 | Outpatient (CLI) | payer BC ==
[2013-07-12 15:14] VITALS: BP 108/64
--- NOTE | 2021-05-13 08:40 | PDOC ---
Progress Note - Pain Clinic Date of Service: DOS: DATE: 05/13/21 TIME: 08:37 Diagnosis: Dx: Myofascial pain Lumbar radiculopathy Cervical radiculopathy Right shoulder joint pain with osteoarthritis History or Present Illness: HPI: Telemedicine visit today with patient's Abhishek verified with full name as well as full date of , total time spent 14 minutes, telephone voice only 51-year-old female via telemedicine visit today requesting refill of Duragesic patch as well as oxycodone. Patient has had very good success with medications with about a 75 to 80% improvement and without significant side effects except for constipation patient reports that is her chief concern currently and has had 1 or 2 days over the last month which she has some significant constipation when she does not generally have patient was able to improve this with some hygq-usc-[id number] laxatives as well as increased hydration we discussed the importance of water hydration avoiding caffeine concentrated liquids etc. and I will recommend using some [id number] MiraLAX as a remedy for this as well as hydration increase. Patient otherwise doing well complains of pain still in the mid back low back upper back especially in the right shoulder patient again is awaiting orthopedic intervention with the right shoulder for some more definitive treatment. Patient has had appropriate K tracks report as well as appropriate urinalyses to date as well. We discussed options, and will refill patient's Duragesic patch 100mcg every 72 hours also oxycodone 10 mg every 6 hours as needed. Patient given instruction as well as the medication. Patient will follow up in approximate 30 days as scheduled. ANGEL EPPS MD May 13, 2021 08:40
--- NOTE | 2021-05-13 09:15 | NUR ---
Patient called requesting med. refill. Verified medications, pharmacy, allergies, patients name and ,and next appointment. patient states her pain level is a 5-6,denied any new medical problems or constipation. ktracts verified call transferred to Dr Cantu.
== END | disposition home or self-care (01) ==
LOC: PNCL 08:08
PROVIDERS: ATTEND Anesthesiology
DX: M79.18 Myalgia, other site (principal); M54.16 Radiculopathy, lumbar region; M54.12 Radiculopathy, cervical region; M19.011 Primary osteoarthritis, right shoulder; Z79.899 Other long term (current) drug therapy; Z88.8 Allergy status to other drugs, medicaments and biological substances
CPT/HCPCS: 99212; G0463

== ENCOUNTER → 2021-06-11 | Outpatient (CLI) | payer BC ==
[2013-07-12 15:14] VITALS: BP 108/64
--- NOTE | 2021-06-11 13:25 | PDOC ---
Progress Note - Pain Clinic Date of Service: DOS: DATE: 06/11/21 TIME: 13:19 Diagnosis: Dx: Myofascial pain Lumbar radiculopathy Cervical radiculopathy Right shoulder joint pain with osteoarthritis History or Present Illness: HPI: 51-year-old female returns for follow-up status post medication management with fentanyl patches and oxycodone. Patient reports he is doing very well has been on very stable regimen with the medications without side effects patient reports increased low back pain recently and she has been taking care of her granddaughter who is requiring some assistance and has had some difficulty with the low back pain radiating to the right lower extremity over the past several weeks patient reports generally the medication controls it fairly well by about 75 to 80% is now about 60 to 70% at the best with increased low back pain from recent activity patient has ceased the activity but still has some significant pain in the low back. Patient rates her pain is 8-9 on scale 10 is worst 4-5 on average 4 to [place]asman is a 6 today. Described as tingling and burning cramping aching sharp dull shooting can be severe and unbearable in the low back as well as her right shoulder with radiating pain in the right upper extremity as previously. Patient is still scheduling x4 potential surgery on the right shoulder with her orthopedist when her social situation changes with which is hopefully later this summer. Patient reports no side effects with medications has had appropriate K tracks reporting multiple urinalyses to date as well. Physical Exam: VS: Blood pressure is 112/73 pulse 84 respirations 18 temperature is 98.7 F weight is 128 pounds. PE: PHYSICAL EXAMINATION: GENERAL: The patient is awake, alert, oriented, appropriate, very pleasant in demeanor HEENT: Shows normocephalic, atraumatic. Extraocular movements are intact and symmetrical. Oral cavity: Mucous membranes moist and pink. Dentition is intact. NECK: Shows anterior throat supple without palpable lymphadenopathy noted. Swallow reflex symmetrical. CHEST: Shows normal on inspection. Breath sounds are clear bilaterally. HEART: Shows S1, S2 clear. No murmurs auscultated. ABDOMEN: Soft, nontender, nondistended. No palpable organomegaly is noted. BACK: Shows spine grossly in the midline. Normal-appearing cervical lordotic curvature. There is slightly increased thoracic kyphosis, some minor flattening of the lumbar lordotic curvature. Lumbar paraspinous muscles show symmetrical on inspection, on palpation shows some moderate tenderness diffusely throughout the upper, middle and lower distribution of the paraspinous muscles without specific trigger points, without radiation of pain. The patient has good rotational motion of the lumbar spine, both laterally as well as extension and flexion without significant difficulty. No tenderness over the spinous processes, sacrum or sacroiliac regions. EXTREMITIES: Lower extremities show deep tendon reflexes 2+ in the patellar and tendo calcaneus tendons. Motor exam is 4 on a scale of 5 with right dorsiflexion, extension, quadriceps and hamstring flexion and 5/5 on the left. Peripheral pulses are 1+ posterior tibial. No peripheral edema is noted bilaterally. Lower extremities are warm and dry to touch, equal in color and appearance. Upper extremities show deep tendon reflexes 2+ in the bicep tricep tendons, motor exam is a 4 scale 5 on the right and 5/5 on the left. Patient right shoulder shows significant tenderness with palpation over the acromioclavicular joint as well as anterior aspect of the shoulder and posterior aspect of the scapula with moderate tenderness in all these areas with palpation with rotation motion shows significant tenderness with abduction past 45 degrees on the right side left side shows good range of motion without significant difficulty. SKIN: Shows warm and dry, good turgor. No edema. No sores, rashes or bruising throughout. Procedure: Procedure: Options were discussed with the patient. Patient's old chart was reviewed as her current medication regimen updated current review of systems updated today as well. We will refill patient's Duragesic patch as well as oxycodone patient given instructions well side effects with each of medications of her 30-day risk prescription. Patient will follow up in approximately 30 days as scheduled. Medication Injected: Med Injected: None Condition at Discharge: Condition at Discharge: Condition at discharge is stable. ANGEL EPPS MD June 11, 2021 13:24
== END | disposition home or self-care (01) ==
LOC: PNCL 11:33
PROVIDERS: ATTEND Anesthesiology
DX: M79.18 Myalgia, other site (principal); M54.16 Radiculopathy, lumbar region; M54.12 Radiculopathy, cervical region; M19.011 Primary osteoarthritis, right shoulder; Z79.899 Other long term (current) drug therapy; Z88.8 Allergy status to other drugs, medicaments and biological substances
CPT/HCPCS: 99212; G0463